=== PATIENT | female | born 1950 | race Hispanic/Latino ===

== ENCOUNTER 2021-04-10 11:29 | Emergency (ER) | payer OTHER ==
--- OUTSIDE RECORDS SUMMARY | 2021-04-10 11:31 | XMS REPORT | Continuity of Care Document ---
:1950 Author Organization [facility] t Address [address] [place] [address] Dr. Da Silva [address] [place] [id number] Care Team Providers Name Role Phone Miller_S_AH Attending Clinician Unavailable Christiano-Mbayo_A_AH Attending Clinician Unavailable Miller_S_AH Admitting Clinician Unavailable Christiano-Mbayo_A_AH Admitting Clinician Unavailable Payers Payer Name Policy Type Policy Number Effective Date Expiration Date S cesar [facility] - [id number] 2019 [employer] 00:00:00 (MEDICARE REPLACEMENT/ADVANT AGE - HMO) Problems This patient has no known problems. Allergies, Adverse Reactions, Alerts This patient has no known allergies or adverse reactions. Medications This patient has no known medications. Procedures This patient has no known procedures. Encounters Start End Encounter Admission Attending Care Care Encounter Source Date/Time Date/Time Type Type Clinicians Facility Department ID 2021-03-26 Outpatient Miller_S_AH VFP VFP [id number] - [facility] 23:15:21 [id number] Family Practic e 2021-03-25 Outpatient Christiano-Mbayo VFP VFP [id number] [facility] 01:54:29 _A_AH [id number] Family Practic e 2021-03-24 Outpatient Christiano-Mbayo VFP VFP [id number] [facility] 20:55:24 _A_AH [id number] Family Practic e 2021-03-24 Outpatient Christiano-Mbayo VFP VFP [id number] [facility] 15:04:54 _A_AH [id number] Family Practic e Results This patient has no known results.
--- NOTE | 2021-04-10 12:59 | RAD REPORT ---
EXAM DESCRIPTION: RAD - Foot Left 3 View - 04/10/2021 12:29 pm CLINICAL HISTORY: injury to L first toe;Pain Pain and swelling, first toe COMPARISON: Foot Left 3 View dated 08/30/2016 FINDINGS: Significant soft tissue injury is seen affecting the great toe. Bone detail is limited due to extensive bandaging. Suspected fracture of the distal phalanx of the great toe is evident.
[2021-04-10] MEDS ORDERED: LIDOCAINE 1% 20 ML MDV ONE (13:02)
[2021-04-10] MEDS ORDERED: IBUPROFEN 200 MG TAB PO ONE (13:02)
[2021-04-10] MEDS ORDERED: BUPIVACAINE 0.5% PF 10 ML VIAL ONE (13:02)
--- NOTE | 2021-04-10 13:57 | EDPHYS ---
Physician Documentation [facility] Name: Aiyana Ham Age: 70 yrs Sex: Female : 1950 Arrival Date: 04/10/2021 Time: 11:33 Bed 10 Private MD: ED Physician Mazin Pedraza HPI: 04/10 13:16 This 70 yrs old Female presents to ER via Wheelchair with complaints of Foot pm1 Injury. 13:16 The patient presents with a crush injury, Resulted from automatic sliding door closing pm1 on left great toe, pain, that is acute. The complaints affect the left first toe. Context: the patient is able to ambulate, Problem is a result from a previous injury: No. Onset: The symptoms/episode began/occurred today. Modifying factors: The symptoms are alleviated by nothing. Associated signs and symptoms: Pertinent negatives numbness, tingling. Treatment prior to arrival includes: applying pressure to the affected area. Severity of symptoms: in the emergency department the symptoms are unchanged. The patient has not experienced similar symptoms in the past. The patient has not recently seen a physician. Historical: - Allergies: 11:49 Codeine; ss - PMHx: 11:49 Anxiety; Hypertension; ss - Immunization history:: Client reports receiving the 2nd dose of the Covid vaccine. - Social history:: Smoking status: Patient denies any tobacco usage or history of. ROS: 11:49 Constitutional: Negative for fever, chills, and weight loss, Cardiovascular: Negative pm1 for chest pain, palpitations, and edema, Respiratory: Negative for shortness of breath, cough, wheezing, and pleuritic chest pain. 11:49 Neuro: Negative for headache, weakness, numbness, tingling, and seizure. 11:49 MS/extremity: Positive for laceration, pain, of the left first toe and Left first toenail, Negative for deformity. 11:49 Skin: Positive for laceration(s), of the Left first toenail and plantar aspect of left first toe. 11:49 All other systems are negative. Exam: 11:49 Constitutional: This is a well developed, well nourished patient who is awake, alert, pm1 and in no acute distress. Head/Face: Normocephalic, atraumatic. 11:49 Eyes: Exam is negative for acute changes, Periorbital structures: appear normal, Extraocular movements: no acute changes, Conjunctiva: no acute changes, no injection, Corneas: no acute changes. 11:49 ENT: Exam is negative for acute changes, TM's: no acute changes, Mouth: Lips: normal, moist, Oral mucosa: normal, pink and intact, moist. 11:49 Cardiovascular: Exam negative for acute changes, Rate: normal, Rhythm: regular, Pulses: no pulse deficits are appreciated. 11:49 Respiratory: Exam negative for acute changes, respiratory distress, shortness of breath. 11:49 Abdomen/GI: Exam negative for acute changes, Inspection: abdomen appears normal, Palpation: abdomen is soft and non-tender, in all quadrants. 11:49 Musculoskeletal/extremity: Extremities: grossly normal except: noted in the Partial avulsion of left great toe nail and laceration to distal palmar aspect of left great toe nail: 11:49 Skin: Appearance: normal except for affected area, injury, laceration(s), that can be described as As noted on ms exam. 11:49 Neuro: Exam negative for acute changes, Orientation: is normal, Mentation: is normal, Motor: is normal, moves all fours. Vital Signs: 11:47 BP 182 / 84; Pulse 66; Resp 17; Temp 97.9(TE); Pulse Ox 100% on R/A; Weight 79.38 kg; ss Height 5 ft. 3 in. (160.02 cm); Pain 10/10; 12:58 BP 169 / 86; Pulse 69; Resp 18; Pulse Ox 100% ; Pain 9/10; ld1 13:15 BP 162 / 79; Pulse 72; Resp 18; Pulse Ox 100% ; ld1 14:27 BP 155 / 80; Pulse 72; Resp 18; Pulse Ox 100% on R/A; ld1 11:47 Body Mass Index 31.00 (79.38 kg, 160.02 cm) ss Laceration: 13:52 Wound Repair of 2cm ( 0.8in ) subcutaneous laceration to left first toe. Irregularly pm1 shaped.. Distal neuro/vascular/tendon intact. Anesthesia: Digital block administered with 3 mls of Lido/Marcaine. Wound prep: Extensive cleansing with betadine by me, Wound irrigation with saline by me, Wound explored extensively, Copious irrigation. Skin closed with 4 4-0 Prolene using 3 simple sutures and 1 figure 8 with sterile technique. Dressed with Neosporin, 4x4's. Patient tolerated well. MDM: 12:18 Patient medically screened. pm1 13:52 Data reviewed: vital signs. Data interpreted: Pulse oximetry: on room air is 100 %. pm1 Interpretation: normal. 13:54 Counseling: I had a detailed discussion with the patient and/or guardian regarding: the pm1 historical points, exam findings, and any diagnostic results supporting the discharge/admit diagnosis, radiology results, the need for outpatient follow up, a sanding machine buffer, to return to the emergency department if symptoms worsen or persist or if there are any questions or concerns that arise at home. 04/10 11:50 Order name: XRAY Foot LEFT 3 View; Complete Time: 13:05 ss 04/10 13:16 Order name: Dressing - Wound; Complete Time: 13:27 pm1 04/10 13:16 Order name: Gloves, Sterile; Complete Time: 13:27 pm1 04/10 13:16 Order name: Prolene, Sutures; Complete Time: 13:27 pm1 04/10 13:16 Order name: Setup Suture Tray; Complete Time: 13:27 pm1 04/10 13:58 Order name: Post-op Orthopedic Shoe; Complete Time: 14:26 pm1 Administered Medications: 13:27 Drug: Bupivacaine (0.5 %) 10 ml {Note: Administered by Nas Brown OPHTHALMIC TECHNICIAN APPRENTICE.} Volume: 10 ld1 ml; Route: Infiltration; 13:27 Drug: Lidocaine (1 %) 5 ml {Note: Administered by Nas Brown OPHTHALMIC TECHNICIAN APPRENTICE.} Volume: 5 ml; ld1 Route: Infiltration; 14:26 Drug: Tetanus-Diphtheria Toxoid Adult 0.5 ml {Gas Meter Repair Supervisor: [employer]. Exp: ld1 09/23/2022. Lot #: [id number]. } Route: IM; Site: left deltoid; Disposition: 04/11 08:52 Co-signature as Attending Physician, Mazin Pedraza MD I agree with the assessment and zayda plan of care. Disposition Summary: 04/10/21 13:57 Discharge Ordered Location: Home pm1 Problem: new pm1 Symptoms: have improved pm1 Condition: Stable pm1 Diagnosis - Nondisplaced fracture of distal phalanx of left great toe - distal tuft fracture pm1 - Laceration without foreign body of left great toe with damage to nail, initial pm1 encounter Followup: pm1 - With: Emergency Department - When: As needed - Reason: Worsening of condition Followup: pm1 - With: Robert Mccormick DPM - When: 2 - 3 days - Reason: Recheck today's complaints, Continuance of care, Re-evaluation by your physician Discharge Instructions: - Discharge Summary Sheet pm1 - Laceration Care, Adult pm1 - Toe Fracture pm1 Forms: - Medication Reconciliation Form pm1 - Thank You Letter pm1 - Antibiotic Education pm1 - Prescription Opioid Use pm1 Prescriptions: - Cephalexin 500 mg Oral Capsule - take 1 capsule by ORAL route every 6 hours for 10 days; 40 capsule; Refills: 0, pm1 Product Selection Permitted - Diclofenac Sodium 75 mg Oral tablet,delayed release (DR/EC) - take 1 tablet by ORAL route 2 times per day As needed; 20 tablet; Refills: 0, pm1 Product Selection Permitted Signatures: Dispatcher [employer] EDMazin Frederick MD MD cha Smirch, Shelby, RN RN Nas Larson, DARA OPHTHALMIC TECHNICIAN APPRENTICE pm1 Kathia Ferreira RN RN ld1
--- NOTE | 2021-04-10 13:57 | ER ---
Nurse's Notes [facility] Name: Aiyana Ham Age: 70 yrs Sex: Female : 1950 Arrival Date: 04/10/2021 Time: 11:33 Bed 10 Private MD: Diagnosis: Nondisplaced fracture of distal phalanx of left great toe-distal tuft fracture;Laceration without foreign body of left great toe with damage to nail, initial encounter Presentation: 04/10 11:47 Chief complaint: Patient states: Automatic door closed onto R 1st toe 1.5 hours ago. ss Blood soaked dressing noted to toe. Coronavirus screen: Client denies travel out of the [place] in the last 14 days. Ebola Screen: Patient denies exposure to infectious person. Patient denies travel to an Ebola-affected area in the 21 days before illness onset. Initial Sepsis Screen: Does the patient meet any 2 criteria? No. Patient's initial sepsis screen is negative. Does the patient have a suspected source of infection? No. Patient's initial sepsis screen is negative. Risk Assessment: Do you want to hurt yourself or someone else? Patient reports no desire to harm self or others. Onset of symptoms was April 10, 2021. 11:47 Method Of Arrival: Wheelchair ss 11:47 Acuity: [place] 4 ss Historical: - Allergies: 11:49 Codeine; ss - PMHx: 11:49 Anxiety; Hypertension; ss - Immunization history:: Client reports receiving the 2nd dose of the Covid vaccine. - Social history:: Smoking status: Patient denies any tobacco usage or history of. Screenin:58 Abuse screen: Denies threats or abuse. Denies injuries from another. Nutritional ld1 screening: No deficits noted. Tuberculosis screening: No symptoms or risk factors identified. Fall Risk None identified. Assessment: 12:58 General: Appears in no apparent distress. uncomfortable, Behavior is calm, cooperative, ld1 appropriate for age. Pain: Complains of pain in plantar aspect of left first toe, left first toe and Left first toenail Pain does not radiate. Pain currently is 9 out of 10 on a pain scale. Quality of pain is described as throbbing, Pain began suddenly, Is continuous. Neuro: Level of Consciousness is awake, alert, obeys commands, Oriented to person, place, time, situation. Cardiovascular: Capillary refill < 3 seconds Patient's skin is warm and dry. Respiratory: Airway is patent Respiratory effort is even, unlabored, Respiratory pattern is regular, symmetrical. GI: Abdomen is flat, non-distended. : No signs and/or symptoms were reported regarding the genitourinary system. EENT: No signs and/or symptoms were reported regarding the EENT system. Derm: Pt closed automatic doors on her left great toe. Musculoskeletal: No signs and/or symptoms reported regarding the musculoskeletal system. 14:27 Reassessment: Patient appears in no apparent distress at this time. No changes from ld1 previously documented assessment. Patient and/or family updated on plan of care and expected duration. Pain level reassessed. Patient is alert, oriented x 3, equal unlabored respirations, skin warm/dry/pink. Vital Signs: 11:47 BP 182 / 84; Pulse 66; Resp 17; Temp 97.9(TE); Pulse Ox 100% on R/A; Weight 79.38 kg; ss Height 5 ft. 3 in. (160.02 cm); Pain 10/10; 12:58 BP 169 / 86; Pulse 69; Resp 18; Pulse Ox 100% ; Pain 9/10; ld1 13:15 BP 162 / 79; Pulse 72; Resp 18; Pulse Ox 100% ; ld1 14:27 BP 155 / 80; Pulse 72; Resp 18; Pulse Ox 100% on R/A; ld1 11:47 Body Mass Index 31.00 (79.38 kg, 160.02 cm) ED Course: 11:33 Patient arrived in ED. kc5 11:49 Triage completed. ss 11:49 Arm band placed on right wrist. ss 12:18 Nas Brown NP is PHCP. pm1 12:18 Mazin Pedraza MD is Attending Physician. pm1 12:29 XRAY Foot LEFT 3 View In Process Unspecified. EDMS 12:56 Kathia Ferreira, JORGE is Primary Nurse. ld1 12:58 Patient has correct armband on for positive identification. Placed in gown. Bed in low ld1 position. Call light in reach. Side rails up X2. monitoring manager on. Pulse ox on. NIBP on. Door closed. Noise minimized. Warm blanket given. 12:58 Assist provider with laceration repair. ld1 13:55 Robert Mccormick DPM is Referral Physician. pm1 14:28 Patient did not have IV access during this emergency room visit. ld1 Administered Medications: 13:27 Drug: Bupivacaine (0.5 %) 10 ml {Note: Administered by Nas Brown NP.} Volume: 10 ld1 ml; Route: Infiltration; 13:27 Drug: Lidocaine (1 %) 5 ml {Note: Administered by Nas Brown NP.} Volume: 5 ml; ld1 Route: Infiltration; 14:26 Drug: Tetanus-Diphtheria Toxoid Adult 0.5 ml {Pediatric Speech Language Pathologist: [employer]. Exp: ld1 09/23/2022. Lot #: [id number]. } Route: IM; Site: left deltoid; Outcome: 13:57 Discharge ordered by MD. pm1 14:28 Discharged to home via wheelchair. ld1 14:28 Condition: stable 14:28 Discharge instructions given to patient, Instructed on discharge instructions, follow up and referral plans. medication usage, Demonstrated understanding of instructions, follow-up care, medications, Prescriptions given X 2. 14:28 Patient left the ED. ld1 Signatures: Dispatcher [employer] EDMS Stella Sutton RN RN ss Marinas, Patrick, NP CATCHER PLUG pm1 Kathia Ferreira RN RN ld1 Rita Pike kc5
[2021-04-10] MEDS ORDERED: TETANUS & DIPHTHERIA TOX,ADULT 0.5 ML VIAL ONE (14:05)
[2021-04-10 14:33] VITALS: TEMP 97.9; O2SAT 100
[2021-04-10 14:36] VITALS: BP 155/80
== END 2021-04-10 14:28 | disposition home or self-care (01) ==
LOC: ER 11:29
PROC: 0JQR0ZZ Repair Left Foot Subcutaneous Tissue and Fascia, Open Approach (ICD-10-PCS; principal; 2021-04-10)
DX: S92.425A Nondisplaced fracture of distal phalanx of left great toe, initial encounter for closed fracture (principal); S91.212A Laceration without foreign body of left great toe with damage to nail, initial encounter; W23.0XXA Caught, crushed, jammed, or pinched between moving objects, initial encounter; Y93.89 Activity, other specified; Y92.9 Unspecified place or not applicable; Z23 Encounter for immunization
CPT/HCPCS: 90471; 90714; 99284

== ENCOUNTER 2021-10-27 09:56 | Day surgery (SDC) | payer OTHER ==
[2021-10-27 09:46] LABS: Absolute Lymphocytes (CBC) 0.5 K/uL (0.7-4.9); Hematocrit 39.2 % (36.0-45.0); Lymphocytes % 7.8 % (15.3-44.8); MPV 7.7 fL (7.6-11.3); RBC Red Blood Cell Count 4.48 M/uL (3.86-4.86)
--- NOTE | 2021-10-27 10:10 | RAD REPORT ---
EXAM DESCRIPTION: RAD - Chest Pa And Lat (2 Views) - 10/27/2021 9:42 am CLINICAL HISTORY: preop, pending cholecystectomy COMPARISON: None TECHNIQUE: Frontal and lateral views of the chest were obtained. FINDINGS: The lungs are clear. Increased anterior base opacification is believed to be combination of chronic interstitial disease and prominent pericardial fat pads. Left costophrenic angle blunting is believed to be the affects of pericardial fat pad and pleural scarring. Joint effusion is not susp ected. Heart size is normal and central vasculature is within normal limits. No pneumothorax. No acu te bony finding noted. No aortic abnormality. IMPRESSION: No acute cardiopulmonary process.
[2021-10-27 10:19] LABS: Albumin 3.7 g/dL (3.4-5.0); Bilirubin Direct 0.1 mg/dL (0-0.2); Bilirubin Total 0.5 mg/dL (0.2-1.0); Potassium 4.8 mmol/L (3.5-5.1)
[2021-10-27] MEDS ORDERED: NA CHLORIDE 0.9% 1,000 ML ONE (10:27)
[2021-10-27] MEDS ORDERED: propofoL 200 MG/20 ML VIAL IV ONE (12:12)
[2021-10-27] MEDS ORDERED: FENTANYL CITR 100 MCG/2 ML ONE (12:12)
[2021-10-27] MEDS ORDERED: LIDOCAINE 1% MPF 5 ML VIAL ONE (12:13)
[2021-10-27] MEDS ORDERED: ONDANSETRON 4 MG/2 ML VIAL ONE (12:13)
[2021-10-27] MEDS ORDERED: ROCURONIUM 50 MG/5 ML VIAL IV ONE (12:13)
[2021-10-27] MEDS: CEFOXITIN SODIUM 1 GM/VIAL ONE ×2 (12:38→13:01)
[2021-10-27] MEDS ORDERED: GLYCOPYRROLATE 0.2 MG/ML SYR ONE (13:48)
[2021-10-27] MEDS ORDERED: NEOSTIGMINE 1 MG/ML -10 ML VIAL ONE (13:57)
[2021-10-27] MEDS ORDERED: Mastisol Adhesive Liq ONE (13:59)
--- NOTE | 2021-10-27 14:06 | P.BOP ---
Preoperative diagnosis: acute cholecystitis, sympt. cholellithiasis, Choledocholithiasis s/pERCPste Postoperative diagnosis: same Primary procedure: Laparoscopic cholecystectomy Mat Cleaning Machine Operator: dAriane Cesar (TIME CLOCK INSPECTOR) Estimated blood loss: <10cc Specimen: gb Findings: as above Anesthesia: General Complications: None Transferred to: Recovery Room Condition: Good
[2021-10-27] MEDS: HYDROMORPHONE HCL 1 MG/ML INJ ONE ×3 (14:25→14:35)
[2021-10-27 15:02] VITALS: TEMP 97
[2021-10-27] MEDS ORDERED: TRAMADOL 37.5mg/APAP 325mg PER TAB ONE (15:29)
[2021-10-27 16:19] VITALS: BP 149/57; O2SAT 96
--- NOTE | 2021-10-30 12:00 | EKG ---
Test Date: 2021-10-27 Test Time: 09:46:49 Tieing Machine Operator: EDMUND MEASUREMENT RESULTS: Intervals: Rate: 61 [place]: 128 QRSD: 110 QT: 458 QTc: 461 [place]: P: -3 [place]: 128 QRS: -20 T: 7 INTERPRETIVE STATEMENTS: Normal sinus rhythm Low voltage QRS Incomplete right bundle branch block Borderline ECG Compared to ECG 07/14/2015 19:50:32 Low QRS voltage now present Incomplete right bundle-branch block now present Right bundle-branch block no longer present Electronically Signed On 10-30-21 11:52:34 CDT by Brant Soto
== END 2021-10-27 16:15 | disposition home or self-care (01) ==
LOC: OR 09:56
PROVIDERS: ATTEND Surgery
PROC: 0FT44ZZ Resection of Gallbladder, Percutaneous Endoscopic Approach (ICD-10-PCS; principal; 2021-10-27 12:00)
DX: K80.10 Calculus of gallbladder with chronic cholecystitis without obstruction (principal); K80.40 Calculus of bile duct with cholecystitis, unspecified, without obstruction; Z20.822 Contact with and (suspected) exposure to COVID-19
CPT/HCPCS: 93005; 85025; 80048; 36415; 82150; 82947; 80076; 88304; 83690; 71046; 47562; U0003; J2704; J2710; J3010; J1170; J7030; J0694; J2405

== ENCOUNTER 2025-02-05 05:24 | Inpatient (IN) | payer OTHER ==
--- OUTSIDE RECORDS SUMMARY | 2025-02-05 05:27 | XMS REPORT | Continuity of Care Document ---
Author Name Unknown Address [address] [facility] [address] [place] [address] [facility] Address [address] [facility] [address] [place] [address] Care Team Providers Care Venue Attendant Name Role Phone Narcisa Martinez Primary Care Physician [phone] Sayda Castro Attending Clinician Unavailable Doctor Unassigned, [place] Attending Clinician U Onel Diallo MD Attending Clinician [phone] ONEL DON Attending Clinician Unavailable Miller_S_AH Attending Clinician Unavailable Christiano-Mbayo_A_AH Attending Clinician Unavailable Miller_S_AH Admitting Clinician Unavailable Christiano-Mbayo_A_AH Admitting Clinician Unavailable Payers Payer Name Policy Type Policy Number Effective Date Expirati on Date Source [facility] [id number] 2018 00:[facility]00 [facility]PLAC[facility]/ADV ANTAGE - HMO) [id number] 2019 00:00:00 Problems Condition Name Condition Details Condition Category Status Onset Date Resolution Date Last Treatment Date Treating Clinician Comments Source Dietary management surveillan ce Dietary counseling and surveillan ce Problem [facility] [id number] Anal pain Problem [facility] Pain in limb Pain, foot Problem [facility] [id number] Chronic allergic rhinitis Problem [facility] [id number] Obesity (BMI 30.0-34.9) Problem [facility] [id number] Skin lesion Problem [facility] Mixed anxiety and depressive disorder Depression with anxiety Problem [facility] Multiple joint pain Multiple joint pain Problem [facility] Overactive bladder Overactive bladder Problem [facility] Hypertensi on Hypertensi on, unspecifie d type Problem [facility] Hyperlipid aemia Hyperlipid emia, unspecifie d hyperlipid emia type Problem [facility] Type II diabetes mellitus well controlled Diabetes type 2, controlled Problem [facility] [id number] Chronic kidney disease, unspecifie d CKD stage Problem [facility] [id number] 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, without long-term current use of insulin Problem Common [facility] [id number] Vaginal odor Problem [facility] Heart disease Heart problem Problem [facility] [id number] Abnormal CBC Problem [facility] [id number] Rash and nonspecifi c skin eruption Problem [facility] [id number] Insomnia, unspecifie d type Problem [facility] [id number] Elevated alkaline phosphatas e level Problem [facility] 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 ion Problem [facility] 27721092 Lower abdominal pain Problem [facility] Anxiety Anxiety Problem [facility] [id number] Urinary frequency Problem [facility] 60241364 Flexural eczema Problem [facility] 39826235 Mixed incontinen ce urge and stress Problem [facility] 24373338 Female genital prolapse, unspecifie d Problem [facility] 469868430 Gallstones Problem Com mon [facility] [id number] Elevated serum creatinine Problem [facility] 79834919 PUD (peptic ulcer disease) Problem [facility] 1471803 Primary insomnia Problem [facility] 66053907 Dysuria Problem [facility] Chronic kidney disease stage 3A (disorder) Chronic kidney disease, stage 3a Problem [facility] [id number] Stage 3b chronic kidney disease (CKD) Problem [facility] Overweight Overweight Problem [facility] Abnormal feces Fecal occult blood test positive Problem [facility] Allergies, Adverse Reactions, Alerts Allergy Name Allergy Type Status Severity Reaction(s) Onset Date Inactive Date Treating Clinician Comments Source CODEINE DRUG INGREDI Active Other-Cmnt 06-25 00:00: 00 [facility] NO KNOWN ALLERGIE S Drug Class Active [facility] Codeine Codeine Active nausea and vomiting; and stomach pain [facility] Social History Social Habit Start Date Stop Date Quantity Comments Source History of Tobacco Use [facility] Sex Assigned At [facility] Exposure to SARS-CoV-2 (event) 2022-06-15 00:00:00 2022-06-25 12:36:00 Not sure [facility] Cigarettes smoked current (pack per day) - Reported 2022-06-25 00:00:00 2022-06-25 00:00:00 [facility] Cigarette pack-years 2022-06-25 00:00:00 2022-06-25 00:00:00 [facility] Tobacco use and exposure 2022-06-25 00:00:00 2022-06-25 00:00:00 Smokeless tobacco non-user [facility] Smoking Status Start Date Stop Date Source Tobacco smoking consumption unknown [facility] Former Smoker 2024-06-05 00:00:00 2024-06-05 00:00:00 [facility] Medications Ordered Medication Name Filled Medication Name Start Date Stop Date Current Medication? Ordering Clinician Indication Dosage Frequency Signature (SIG) Comments Components Source Clobetasol Propionate 0.05 % Clobetasol Propionate 0.05 % 12-01 00:00: 00 No 1{appli cation} BID Clobetasol Propionate 0.05 % tc 99m-tetrofo smin (MYOVIEW) injection 43.1 millicurie 07-26 15:00: 00 07-26 14:51 :00 No [id number] 43.1mCi 43.1 millicurie , Intravenou s, ONCE, 1 dose, On [place] 07/26/22 at 1000, Routine [facility] regadenoson (LEXISCAN) injection 0.4 mg 07-26 14:45: 00 07-26 16:34 :00 No [id number] .4mg 0.4 mg, IV Push, ONCE, 1 dose, On [place] 07/26/22 at 0945, Routine
member of the legislative council approving Restricted medication : ONEL DON [facility] tc 99m-tetrofo smin (MYOVIEW) injection 16 millicurie 07-26 13:30: 00 07-26 13:22 :00 No [id number] 16mCi 16 millicurie , Intravenou s, ONCE, 1 dose, On [place] 07/26/22 at 0830, Routine [facility] glipiZIDE 5 mg tablet 06-25 12:53: 38 Yes 5mg Take 5 mg by mouth in the morning. [facility] losartan 100 mg tablet 06-25 12:53: 38 Yes 100mg Take 100 mg by mouth in the morning. [facility] traZODone 100 mg tablet 06-25 12:53: 38 Yes 100mg Take 100 mg by mouth at bedtime. [facility] hydrALAZINE 50 mg tablet 06-25 12:53: 38 Yes 50mg Take 50 mg by mouth in the morning and 50 mg in the evening. [facility] pantoprazol e 40 mg EC tablet 06-25 12:53: 38 Yes 40mg Take 40 mg by mouth in the morning. [facility] OneTouch Delica Lancets 30G - OneTouch Delica Lancets 30G - No OneTouch Delica Lancets 30G - Carvedilol 25 MG Carvedilol 25 MG No Carvedilol 25 MG OneTouch Ultra - OneTouch Ultra - No OneTouch Ultra - hydrALAZINE HCl 50 MG hydrALAZINE HCl 50 MG No 1{table t} hydrALAZIN E HCl 50 MG traZODone HCl 100 MG traZODone HCl 100 MG No 1{table t_at_be dtime} QD traZODone HCl 100 MG Atorvastati n Calcium 20 MG Atorvastati n Calcium 20 MG No QD Atorvastat in Calcium 20 MG Coreg 25 MG Coreg 25 MG No 1{table t} Coreg 25 MG Pantoprazol e Sodium 40 MG Pantoprazol e Sodium 40 MG No 1{table t} QD Pantoprazo le Sodium 40 MG Losartan Potassium 100 mg Losartan Potassium 100 mg No 1{table t} QD Losartan Potassium 100 mg Sucralfate 1 GM Sucralfate 1 GM No Sucralfate 1 GM Immunizations Ordered Immunization Name Filled Immunization Name Date Status Comments Source Moderna COVID-19 Vaccine, Fall 2022, years and up Moderna COVID-19 Vaccine, Fall 2022, years and up Unknown Completed [facility] Boostrix (Tdap) Boostrix (Tdap) Unknown Completed [facility] Influenza Influenza Unknown Completed [facility] Vital Signs Vital Name Observation Time Observation Value Comments S ource height 2024-06-09 10:40:00 63.25 [in_i] Com mon [facility] weight 2024-06-09 10:40:00 165.8 [lb_av] Co mmon [facility] temperature 2024-06-09 10:40:00 98 [degF] Comm on [facility] bmi 2024-06-09 10:40:00 29.14 kg/m2 Comm on [facility] oximetry 2024-06-09 10:40:00 94 % Commo n [facility] respiratory rate 2024-06-09 10:40:00 16 /min [facility] blood pressure systolic 2024-06-09 10:40:00 136 mm[Hg] [facility] blood pressure diastolic 2024-06-09 10:40:00 88 mm[Hg] [facility] height 2024-03-02 13:40:00 63.25 [in_i] Com [facility] weight 2024-03-02 13:40:00 166 [lb_av] Comm on [facility] temperature 2024-03-02 13:40:00 97.4 [degF] Com [facility] bmi 2024-03-02 13:40:00 29.17 kg/m2 Comm on [facility] oximetry 2024-03-02 13:40:00 96 % Commo n [facility] respiratory rate 2024-03-02 13:40:00 16 /min [facility] blood pressure systolic 2024-03-02 13:40:00 132 mm[Hg] [facility] blood pressure diastolic 2024-03-02 13:40:00 66 mm[Hg] [facility] height 2023-11-29 13:40:00 63.25 [in_i] Com [facility] weight 2023-11-29 13:40:00 168 [lb_av] Comm on [facility] temperature 2023-11-29 13:40:00 97.4 [degF] Com [facility] bmi 2023-11-29 13:40:00 29.52 kg/m2 Comm on [facility] oximetry 2023-11-29 13:40:00 96 % Commo n [facility] respiratory rate 2023-11-29 13:40:00 16 /min [facility] blood pressure systolic 2023-11-29 13:40:00 130 mm[Hg] [facility] blood pressure diastolic 2023-11-29 13:40:00 62 mm[Hg] [facility] height 2023-08-28 13:40:00 63.25 [in_i] Com [facility] weight 2023-08-28 13:40:00 170 [lb_av] Comm on [facility] temperature 2023-08-28 13:40:00 97.3 [degF] Com [facility] bmi 2023-08-28 13:40:00 29.87 kg/m2 Comm on [facility] oximetry 2023-08-28 13:40:00 97 % Commo n [facility] respiratory rate 2023-08-28 13:40:00 16 /min [facility] blood pressure systolic 2023-08-28 13:40:00 118 mm[Hg] [facility] blood pressure diastolic 2023-08-28 13:40:00 58 mm[Hg] Common [facility] height 2023-08-28 13:40:00 63.25 [in_i] Com [facility] weight 2023-08-28 13:40:00 170.0 [facility]lb_av[facility] 2023-08-28 13:40:00 97.3 [degF] Com [facility] bmi 2023-08-28 13:40:00 29.87 kg/m2 Comm on [facility] oximetry 2023-08-28 13:40:00 97 % Commo n [facility] respiratory rate 2023-08-28 13:40:00 16 /min [facility] blood pressure systolic 2023-08-28 13:40:00 118 mm[Hg] [facility] blood pressure diastolic 2023-08-28 13:40:00 58 mm[Hg] [facility] Systolic blood pressure 2022-06-25 18:56:00 132 mm[Hg] [place] [facility] Diastolic blood pressure 2022-06-25 18:56:00 68 mm[Hg] [facility] Heart rate 2022-06-25 18:56:00 63 /min [facility] Body temperature 2022-06-25 18:56:00 36.72 Emily [facility] Respiratory rate 2022-06-25 18:56:00 18 /min [facility] Body height 2022-06-25 18:56:00 160 cm [facility] Body weight 2022-06-25 18:56:00 75.524 kg [facility] BMI 2022-06-25 18:56:00 29.49 kg/m2 [facility] Oxygen saturation in Arterial blood by Pulse oximetry 2022-06-25 18:56:00 96 /min [facility] Procedures Procedure Date / Time Performed Performing Clinicia n Source MEDICAL RELEASE/CLEARANCE FORMS 2022-09-11 05:01:00 Doctor Unassigned, [place] [facility] MYOCARDIUM PERFUSION STRESS AND REST 2022-07-26 16:00[facility]00 [facility] 2022-07-26 16:00:00 Gaudencio [facility] MYOCARDIUM PERFUSION STRESS AND REST 2022-07-26 16:00:00 Gaudencio [facility] MYOCARDIUM PERFUSION STRESS AND REST 2022-07-26 16:00:00 Gaudencio [facility] ASSIGNMENT OF BENEFITS 2022-07-26 13:09:10 Docto r Unassigned, [place] [facility] CONSENT/REFUSAL FOR DIAGNOSIS AND TREATMENT 2022-07-26 13:08:44 Doctor Unassigned, A[place] [facility] HB ECG ROUTINE & RHYTHM STRIP 2022-06-25 [facility]:01[facility]AT[facility] 2022-06-25 18:34:05 Doctor Unassigned, [place] [facility] EXTERNAL PROVIDER - ADC REFERRAL 2022-05-22 06:01:00 Doctor Unassigned, [place] [facility] Encounters Start Date/Time End Date/Time Encounter Type Admission Type Attending Clinicians Care Facility Care Department Encounter ID Source 2023-11-27 15:17:00 Outpatient Sayda Castro [facility] STLMLC [id number] [facility] 2023-08-28 13:39:01 Outpatient Sayda Castro [facility] STLC [id number] [facility] 2024-06-17 00:00:00 2024-06-17 00:00:00 (TEL) STLMLC STLMLC [id number] [facility] 2024-06-09 00:00:00 2024-06-09 00:00:00 OFFICE VISIT ESTAB PT LEVEL 4 STLMLC STLMLC [id number] [facility] 2024-05-26 00:00:00 2024-05-26 00:00:00 (TEL) STLMLC STLMLC [id number] [facility] 2024-03-02 00:00:00 2024-03-02 00:00:00 OFFICE VISIT ESTAB PT LEVEL 4 STLMLC STLMLC [id number] [facility] 2024-02-13 00:00:00 2024-02-13 00:00:00 (TEL) STLMLC STLMLC [id number] [facility] 2023-11-29 00:00:00 2023-11-29 00:00:00 OFFICE VISIT ESTAB PT LEVEL 4 STLMLC STLMLC [id number] [facility] 2023-10-28 00:00:00 2023-10-28 00:00:00 (TEL) STLMLC STLMLC [id number] [facility] 2023-08-28 00:00:00 2023-08-28 00:00:00 [facility] STL[facility] [id number] [facility] 2023-08-28 00:00:00 2023-08-28 00:00:00 OFFICE VISIT ESTAB PT LEVEL 4 STLMLC STLMLC [id number] [facility] 2022-09-11 00:00:00 2022-09-11 00:00:00 Orders Only Doctor Unassigned, [place] [facility] [id number] 350.1.13.10 4.2.7.2.686 [id number] [facility] 2022-08-31 00:00:00 2022-08-31 00:00:00 [facility] [id number] 350.1.13.10 4.2.7.2.686 [id number] [facility] 2022-07-27 00:00:00 2022-07-27 00:00:00 Telephone Gaudencio [facility] [id number] 350.1.13.10 4.2.7.2.686 [id number] [facility] 2022-07-26 08:10:26 2022-07-26 23:59:00 Hospital Encounter [facility] [id number] 350.1.13.10 4.2.7.2.686 [id number] [facility] 2022-07-26 08:10:12 2022-07-26 23:59:00 Hospital Encounter Gaudencio, [facility] 1.2.840.114 350.1.13.10 4.2.7.2.686 [id number] [facility] 2022-07-26 08:10:00 2022-07-26 08:10:00 [facility] 1.2.840.114 350.1.13.10 4.2.7.2.686 [id number] [facility] 2022-07-26 08:09:36 2022-07-26 08:09:36 [facility] [id number] 350.1.13.10 4.2.7.2.686 [id number] [facility] 2022-07-26 08:09:36 2022-07-26 08:09:36 [facility] [id number] [facility] 2022-07-12 07:59:10 2022-07-12 23:59:[address] [facility] [id number] 350.1.13.10 4.2.7.2.686 [id number] [facility] 2022-07-12 00:00:00 2022-07-12 23:59:00 [facility] [id number] [facility] 2022-06-27 00:00:00 2022-06-27 00:00:00 Telephone Gaudencio [facility] 1.2.840.114 350.1.13.10 4.2.7.2.686 [id number] [facility] 2022-06-25 13:00:00 2022-06-25 14:33:34 Office Visit Gaudencio [facility] 1.2.840.114 350.1.13.10 4.2.7.2.686 [id number] [facility] 2022-06-25 13:00:00 2022-06-25 14:33:34 [facility] [id number] [facility] 2022-06-25 00:00:00 2022-06-25 00:00:00 Orders Only Doctor Unassigned, [place]yr [facility] [id number] 350.1.13.10 4.2.7.2.686 [id number] [facility] 2022-05-22 00:00:00 2022-05-22 00:00:00 Orders Only Doctor Unassigned, [place] [facility] 1.2.840.114 350.1.13.10 4.2.7.2.686 [id number] [facility]
[2025-02-05 05:46] LABS: Absolute Lymphocytes (CBC) 0.3 K/uL (0.7-4.9); Hematocrit 27.2 % (36.0-45.0); Hemoglobin 9.0 g/dL (12.0-15.0); MCH 27.8 pg (27.0-35.0); MCHC 33.0 g/dL (32.0-36.0); MCV 84.4 fL (80-100); MPV 7.5 fL (7.6-11.3); Nucleated RBC Absolute Count 0.0 (0-0); Nucleated Red Blood Cells % 0.0 % (0-0); RBC Red Blood Cell Count 3.23 M/uL (3.86-4.86); White Blood Count 4.70 thou/uL (4.3-10.9)
[2025-02-05 05:53] LABS: PT Prothrombin Time 12.7 SECONDS (10-13.0); Protime INR 1.13
[2025-02-05 06:05] LABS: ALT/SGPT 15 U/L (13-56); AST/SGOT 21 U/L (15-37); Albumin 2.7 g/dL (3.4-5.0); Albumin/Globulin Ratio 0.6 (1.1-1.8); Alkaline Phosphatase 95 U/L (45-117); Anion Gap 10.7 mEq/L (5.0-15.0); BUN Blood Urea Nitrogen 61 mg/dL (7-18); Globulin 4.6 g/dL (2.3-3.5); Glucose Level 125 mg/dL (74-106); NT PRO-BNP 6434 pg/mL (<450); Potassium 4.7 mEq/L (3.5-5.1); Troponin High Sensitivity 29.0 pg/mL (<58.9)
[2025-02-05 06:06] LABS: Bilirubin Indirect, Calculated 0.3 mg/dL (0.2-0.8)
[2025-02-05] MEDS ORDERED: METHYLPREDNISOLONE 125 MG INJ ONE (06:21)
--- NOTE | 2025-02-05 06:26 | ER ---
Nurse's Notes [facility] Name: Aiyana Ham Age: 74 yrs Sex: Female : 1950 Arrival Date: 02/05/2025 Time: 05:24 Bed 16 Private MD: Diagnosis: Dyspnea, microscopic polyangiitis, CHF Presentation: 02/05 05:26 Chief complaint: Patient states: SHORTNESS OF BREATH OFF AND ON FOR A MONTH. ha1 05:26 Method Of Arrival: EMS: [facility] 1 05:26 Coronavirus screen: Client denies travel out of the [place] in the last 14 days. Ebola ha1 Screen: No symptoms or risks identified at this time. Initial Sepsis Screen: Does the patient meet any 2 criteria? No. Patient's initial sepsis screen is negative. Does the patient have a suspected source of infection? No. Patient's initial sepsis screen is negative. Risk Assessment: Do you want to hurt yourself or someone else? Patient reports no desire to harm self or others. Onset of symptoms was February 05, 2025. 05:26 Acuity: [place] 2 ha1 Triage Assessment: 05:43 Respiratory: ha1 05:43 General: Appears uncomfortable, Behavior is cooperative. Pain: Denies pain. Neuro: ha1 Level of Consciousness is awake, alert, obeys commands, Oriented to person, place, time, situation. Cardiovascular: Capillary refill < 3 seconds Patient's skin is warm and dry. Respiratory: Reports shortness of breath at rest on exertion Airway is patent Respiratory effort is even, unlabored, Respiratory pattern is regular, symmetrical. Historical: - Allergies: 05:37 Codeine; ha1 - Home Meds: 05:37 Hydralazine Oral [Active]; losartan 50 mg Oral tab 1 tab 2 times per day [Active]; ha1 pantoprazole oral [Active]; sucralfate 1 gram Oral tablet [Active]; trazodone 100 mg Oral tablet [Active]; Coreg 25 mg Oral tablet [Active]; atorvastatin 20 mg oral tablet [Active]; - PMHx: 05:37 Anxiety; Hypertension; ha1 - Immunization history:: Adult Immunizations unknown. - Infectious Disease History:: Denies. - Social history:: Smoking status: Patient/guardian denies using tobacco, the patient reports quitting approximately 15 years ago. Screenin:42 [facility] ED Fall Risk Assessment (Adult) History of falling in the last 3 months, ha1 including since admission No falls in past 3 months (0 pts) Confusion or Disorientation No (0 pts) Intoxicated or Sedated No (0 pts) Impaired Gait Yes (1 pt) Mobility Assist Device Used Yes (1 pt) Altered Elimination No (0 pt) Score/Fall Risk Level 3 or more points = High Risk Oriented to surroundings, Maintained a safe environment, Educated pt \T\ family on fall prevention, incl call for assistance when getting out of bed, Hourly rounding (assess needs \T\ fall precautionary measures) done. Abuse screen: Denies threats or abuse. Denies injuries from another. Nutritional screening: No deficits noted. Tuberculosis screening: No symptoms or risk factors identified. Assessment: 05:36 General: Appears comfortable, Behavior is cooperative, anxious. Pain: Denies pain. kd3 Cardiovascular: Rhythm is regular. Respiratory: Reports shortness of breath at rest labored breathing Airway is patent Respiratory effort is labored. 05:49 Respiratory: Breath sounds are clear in right upper lobe Breath sounds with crackles in kd3 left upper lobe. Vital Signs: 05:33 Temp 98; kd3 05:36 BP 208 / 93; Pulse 75; Resp 18; Pulse Ox 100% ; kd3 05:42 Weight 72.57 kg; Height 5 ft. 2 in. ; ha1 05:46 BP 192 / 71; Pulse 75; Resp 26; Pulse Ox 100% on 4 lpm NC; kd3 06:17 BP 188 / 68; Pulse 74; Resp 19; Pulse Ox 100% on 4 lpm NC; kd3 06:40 BP 177 / 70; Pulse 78; Resp 23; Pulse Ox 100% on 4 lpm NC; kd3 07:32 BP 178 / 71; Pulse 74; Resp 17; Pulse Ox 100% on 4 lpm NC; hb 05:42 Body Mass Index 29.26 (72.57 kg, 157.48 cm) ha1 ED Course: 05:26 Patient arrived in ED. gm2 05:26 Patient has correct armband on for positive identification. Bed in low position. Call ha1 light in reach. Side rails up X2. 05:26 Client placed on continuous cardiac and pulse oximetry monitoring. NIBP monitoring ha1 applied. nuclear monitoring technician on. 05:29 Wanda Colunga MD is Attending Physician. sp3 05:32 Lizzy Thomas, RN is Primary Nurse. kd3 05:33 Initial lab(s) drawn, by me, sent to lab. EKG done, by ED staff, reviewed by Wanda Colunga MD. Inserted saline lock: 22 gauge in left forearm, using aseptic technique. Blood collected. Flushed with 10 mL NS. 05:37 Triage completed. ha1 06:09 XRAY Chest (1 view) In Process Unspecified. EDMS 06:26 Wm Durham MD is Hospitalizing Provider. sp3 06:40 Arm band placed on. kd3 Administered Medications: 06:25 Drug: MethylPrednisoLONE IVP 125 mg IVP once Route: IVP; Site: left forearm; kd3 Medication: 05:47 VIS not applicable for this client. kd3 Outcome: 06:26 Decision to Hospitalize by Provider. sp3 08:52 Patient left the ED. iw Signatures: Dispatcher [employer] EDMN Nadiya Hernandez RN RN Alexandria Kwan RN RN Wanda Colunga MD MD sp3 Lizzy Thomas, RN RN kd3 Yojana Carrion RN RN [facility] Claudine Hendrickson [facility]
--- NOTE | 2025-02-05 06:26 | EDPHYS ---
Physician Documentation [facility] Name: Aiyana Ham Age: 74 yrs Sex: Female : 1950 Arrival Date: 02/05/2025 Time: 05:24 Bed 16 Private MD: ED Physician Wanda Colunga HPI: 02/05 06:07 This 74 yrs old Female presents to ER via EMS with complaints of Breathing sp3 Difficulty. 06:07 74-year-old female presents to the ED referred by her PCP for microscopic polyangiitis sp3 (MPA). Patient also has been having some shortness of breath. She denies any headache, fever, neck pain, chest pain, abdominal pain, vomiting, diarrhea, or any other signs or symptoms on ROS at this time. Patient is not currently on steroids. PMH includes anxiety and hypertension. Her PCP is at [facility].. Historical: - Allergies: 05:37 Codeine; ha1 - Home Meds: 05:37 Hydralazine Oral [Active]; losartan 50 mg Oral tab 1 tab 2 times per day [Active]; ha1 pantoprazole oral [Active]; sucralfate 1 gram Oral tablet [Active]; trazodone 100 mg Oral tablet [Active]; Coreg 25 mg Oral tablet [Active]; atorvastatin 20 mg oral tablet [Active]; - PMHx: 05:37 Anxiety; Hypertension; ha1 - Immunization history:: Adult Immunizations unknown. - Infectious Disease History:: Denies. - Social history:: Smoking status: Patient/guardian denies using tobacco, the patient reports quitting approximately 15 years ago. ROS: 06:12 Constitutional: Negative for fever, chills, and weight loss, Eyes: Negative for injury, sp3 pain, redness, and discharge, ENT: Negative for injury, pain, and discharge, Neck: Negative for injury, pain, and swelling, Cardiovascular: Negative for chest pain, palpitations, and edema, Respiratory: Negative for shortness of breath, cough, wheezing, and pleuritic chest pain, Abdomen/GI: Negative for abdominal pain, nausea, vomiting, diarrhea, and constipation, Back: Negative for injury and pain, MS/Extremity: Negative for injury and deformity, Skin: Negative for injury, rash, and discoloration, Neuro: Negative for headache, weakness, numbness, tingling, and seizure, Psych: Negative for depression, anxiety, suicide ideation, homicidal ideation, and hallucinations, Allergy/Immunology: Negative for hives, rash, and allergies, Endocrine: Negative for neck swelling, polydipsia, polyuria, polyphagia, and marked weight changes, 06:12 All other systems are negative, Exam: 06:13 Constitutional: This is a well developed, well nourished patient who is awake, alert, sp3 and in no acute distress. Head/Face: Normocephalic, atraumatic. Eyes: Pupils equal round and reactive to light, extra-ocular motions intact. Lids and lashes normal. Conjunctiva and sclera are non-icteric and not injected. Cornea within normal limits. Periorbital areas with no swelling, redness, or edema. ENT: Nares patent. No nasal discharge, no septal abnormalities noted. External auditory canals are clear. Oropharynx with no redness, swelling, or masses, exudates, or evidence of obstruction, uvula midline. Mucous membranes moist. Neck: Trachea midline, no thyromegaly or masses palpated, and no cervical lymphadenopathy. Supple, full range of motion without nuchal rigidity, or vertebral point tenderness. No Meningismus. Chest/axilla: Normal chest wall appearance and motion. Nontender with no deformity. No lesions are appreciated. Cardiovascular: Regular rate and rhythm with a normal S1 and S2. No gallops, murmurs, or rubs. Normal PMI, no JVD. No pulse deficits. Respiratory: Lungs have equal breath sounds bilaterally, clear to auscultation and percussion. No rales, rhonchi or wheezes noted. No increased work of breathing, no retractions or nasal flaring. Abdomen/GI: Soft, non-tender, with normal bowel sounds. No distension or tympany. No guarding or rebound. No evidence of tenderness throughout. Back: No spinal tenderness. No costovertebral tenderness. Full range of motion. Skin: Warm, dry with normal turgor. Normal color with no rashes, no lesions, and no evidence of cellulitis. MS/ Extremity: Pulses equal, no cyanosis. Neurovascular intact. Full, normal range of motion. Neuro: Awake and alert, GCS 15, oriented to person, place, time, and situation. Cranial nerves II-XII grossly intact. Motor strength 5/5 in all extremities. Sensory grossly intact. Cerebellar exam normal. Normal gait. Psych: Awake, alert, with orientation to person, place and time. Behavior, mood, and affect are within normal limits. 06:13 Respiratory: Coarse breath sounds bilaterally. Respiratory rate between 20 and 24. No accessory muscle use or respiratory distress noted., 06:27 ECG was reviewed by the Attending Physician. EKG demonstrates normal sinus rhythm at 80 sp3 bpm with normal intervals, normal QRS, normal axis, nonspecific diffuse ST/T changes without evidence of acute ischemia. Vital Signs: 05:33 Temp 98; kd3 05:36 BP 208 / 93; Pulse 75; Resp 18; Pulse Ox 100% ; kd3 05:42 Weight 72.57 kg; Height 5 ft. 2 in. ; ha1 05:46 BP 192 / 71; Pulse 75; Resp 26; Pulse Ox 100% on 4 lpm NC; kd3 06:17 BP 188 / 68; Pulse 74; Resp 19; Pulse Ox 100% on 4 lpm NC; kd3 06:40 BP 177 / 70; Pulse 78; Resp 23; Pulse Ox 100% on 4 lpm NC; kd3 07:32 BP 178 / 71; Pulse 74; Resp 17; Pulse Ox 100% on 4 lpm NC; hb 05:42 Body Mass Index 29.26 (72.57 kg, 157.48 cm) ha1 MDM: 05:36 Medical Screening Exam initiated sp3 06:13 Data reviewed: vital signs, nurses notes, lab test result(s), EKG, radiologic studies. sp3 ED course: 74-year-old female with microscopic polyangiitis workup. Differential diagnosis includes MPA, ACS, CHF, pneumonia, bronchitis, electrolyte abnormality, among others. Full workup pending. Patient will likely need to be admitted. I have started steroids but will defer to internal medicine for cyclophosphamide.. 02/05 05:34 Order name: Basic Metabolic Panel; Complete Time: 06:15 ha1 02/05 05:34 Order name: CBC with Diff; Complete Time: 05:58 ha1 02/05 05:34 Order name: LFT's; Complete Time: 06:15 ha1 02/05 05:34 Order name: NT PRO-BNP; Complete Time: 06:15 ha1 02/05 05:34 Order name: PT-INR; Complete Time: 05:58 ha1 02/05 05:34 Order name: Troponin HS; Complete Time: 06:15 [facility] 02/05 07:23 Order name: C-Reactive Protein [facility] 02/05 07:23 Order name: Troponin High Sensitivity [facility] 02/05 05:34 Order name: XRAY Chest (1 view) [facility] 02/05 07:23 Order name: Echo with Doppler [facility] 02/05 07:23 Order name: CONS Physician Consult [facility] 02/05 07:23 Order name: CONS Physician Consult [facility] 02/05 05:34 Order name: Cardiac monitoring; Complete Time: 05:34 [facility] 02/05 05:34 Order name: EKG - Nurse/Tech; Complete Time: 05:34 [facility] 02/05 05:34 Order name: IV Saline Lock; Complete Time: 05:34 02/05 05:34 Order name: Labs collected and sent; Complete Time: 05:34 [facility] 02/05 05:34 Order name: O2 Per Protocol; Complete Time: 05:34 [facility] 02/05 05:34 Order name: O2 Sat Monitoring; Complete Time: 05:34 ha Administered Medications: 06:25 Drug: MethylPrednisoLONE IVP 125 mg IVP once Route: IVP; Site: left forearm; kd3 Disposition Summary: 02/05/25 06:26 Hospitalization Ordered Notes: Hospitalization Status: Inpatient Admission sp3 Provider: Wm Durham sp3 [facility] sp3 Condition: Stable sp3 Problem: new sp3 Symptoms: have worsened sp3 Bed/Room Type: Standard sp3 Room Assignment: [facility](02/05/25 07:29) eb Diagnosis - Dyspnea, microscopic polyangiitis, CHF sp3 Forms: - Medication Reconciliation Form sp3 - SBAR form sp3 - Leadership Thank You Letter sp3 Signatures: Dispatcher [employer] [facility] Yvette Marquez Wanda Colunga MD MD sp3 Lizzy Thomas RN RN 3 Yojana Carrion RN RN 1 Corrections: (The following items were deleted from the chart) 07: 06:26 sp3 eb
[2025-02-05] MEDS ORDERED: ONDANSETRON 4 MG/2 ML VIAL IV PRN (07:17)
[2025-02-05] MEDS ORDERED: ACETAMINOPHEN 650MG/RECT SUPP PR PRN (07:17)
--- NOTE | 2025-02-05 07:26 | P.HP ---
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 She has been sent by Dr. Still for abnormal blood work including positive ANCA screen with a high anti-MPO titer. She is short of breath and feeling very weak. 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 She has little social support. She denies fevers, chills. She does have some associated shortness of breath. She is seen resting comfortably and responds to my commands but falls back asleep. Allergies codeine Adverse Reaction (Verified 10/27/21 10:39) stomach pain Home Medications: Atorvastatin Calcium [Lipitor] 20 mg PO BEDTIME 10/27/21 Losartan Potassium [Cozaar] 100 mg PO DAILY 10/27/21 Pantoprazole Sodium 40 mg PO DAILY 10/27/21 Trazodone HCl 100 mg PO BEDTIME 10/27/21 carvediloL [Coreg] 25 mg PO BID 10/27/21 Ergocalciferol (Vitamin D2) [Vitamin D2] 1 cap PO SEECOM 02/05/25 Hydralazine HCl 1 tab PO BID 02/05/25 Sucralfate [Carafate] 1 tab PO BID 02/05/25 Torsemide [Demadex*] 1 tab PO DAILY 02/05/25 - Family History Father History Unknown: Yes Mother History Unknown: Yes Review of Systems is unable to be obtained Physical Examination - Physical Exam General: In no apparent distress, Mild distress HEENT: Normocephalic Neck: Supple Respiratory: Clear to auscultation bilaterally Capillary refill: <2 Seconds Gastrointestinal: Normal bowel sounds Musculoskeletal: Swelling Integumentary: No rashes Neurological: Normal speech Lymphatics: No axilla or inguinal lymphadenopathy - Studies Laboratory Data (last 24 hrs) 02/05/25 02/05/25 02/05/25 05:38 05:38 05:38 WBC 4.70 Hgb 9.0 L Hct 27.2 L Plt Count 205 PT 12.7 INR 1.13 Sodium 138 Potassium 4.7 BUN 61 H Creatinine 3.71 H Glucose 125 H Total Bilirubin 0.5 AST 21 ALT 15 Alkaline Phosphatase 95 Assessment and Plan - Plan CHF exacerbation Hypoxia ANCA Vasculitis Acute kidney injury on CKD Pulmonary edema Hypertensive urgency Anemia chronic kidney disease Admit to floor Defer to nephrology for Rituximab and cyclophosphamide. Will start medications on Saturday, discussed with nephrology Continue breathing treatments, Lasix, steroids Now on nifedipine and hydralazine as needed Consult nephrology and pulmonology CBC and CMP in the a.m. Check iron studies Monitor blood sugars closely as she is on high-dose steroid Add Lantus 10 units nightly and continue sliding scale insulin - Advance Directives Does patient have a Living Will: No Does patient have a Durable POA for Healthcare: No
--- NOTE | 2025-02-05 07:37 | RAD REPORT ---
EXAM DESCRIPTION: Chest Single View CLINICAL HISTORY: SOB COMPARISON: None TECHNIQUE: Single AP view of the chest. FINDINGS: Lung volumes adequate. Cardiac silhouette is enlarged. Aortic calcifications. No pneumothorax. No large pleural effusion. Bilateral interstitial thickening. No focal consolidation. No acute bony finding. IMPRESSION: 1. Bilateral interstitial thickening, could represent pulmonary edema. No focal consolidation. 2. Enlarged cardiac silhouette. Electronically signed by: Deann Yañez MD 02/05/2025 07:25 AM CDT TYG Due to temporary technical issues with the PACS/[employer] reporting system, reports are being javier d by the in-house radiologist without review as a courtesy to ensure prompt reporting the interpreting radiologist is fully responsible for the content of the report Transcribed Date/Time: 02/05/2025 7:37 AM
[2025-02-05] MEDS: METHYLPREDNISOLONE 40 MG INJ IV SCH (09:00)
[2025-02-05 09:38] LABS: C-Reactive Protein 10.5 mg/L (<3.00); Troponin High Sensitivity 30.1 pg/mL (<58.9)
[2025-02-05 09:40] LABS: HDL Cholesterol 53.0 mg/dL (40-60); Iron 35.0 ug/dL (50-170); LDL Cholesterol, Calculated 41.0 mg/dL (<130); LDL Cholesterol,Calc NonReport 41.0; Thyroid Stimulating Hormone 2.57 uIU/mL (0.358-3.740); Transferrin 229.0 mg/dL (200-360)
[2025-02-05] MEDS: HEPARIN 5000 UNIT/ML 1 ML VIAL SQ SCH (10:06)
[2025-02-05] MEDS: METHYLPRED NA SUC 1,000 MG in NA CHLORIDE 0.9% 100 ML IV SCH (10:07)
[2025-02-05] MEDS: FUROSEMIDE 40 MG/4 ML VIAL IV SCH (10:07)
--- NOTE | 2025-02-05 10:17 | RAD REPORT ---
EXAM: CT CHEST, ABDOMEN AND PELVIS WITHOUT CONTRAST CLINICAL INDICATION: Interstitial lung disease? TECHNIQUE: CT chest, abdomen and pelvis was performed without contrast, as per department protocol. A xial, sagittal and coronal reconstructions were obtained. One or more of the following dose reduction techniques were used: Automated exposure control, adjustment of the mA and/or kV according to patient size, and/or iterative reconstruction. Unless otherwise specified, incidental findings do not require dedicated imaging follow-up. Examination is limited by the lack of intravenous contrast material. COMPARISON: No prior exam. FINDINGS: LUNGS: Mild linear atelectasis in both lung bases. Minimal pulmonary interstitial edema possible. PLEURA: Trace pleural fluid bilaterally. MEDIASTINUM AND LYMPH NODES: Small pericardial effusion. A few mildly prominent lymph nodes are seen in the upper mediastinum. OSSEOUS STRUCTURES AND CHEST WALL: Intact. LIVER: Normal in size and contour. No focal lesion or biliary dilatation. Cholecystectomy clips. PANCREAS: No mass, ductal dilation, or oscar-pancreatic fluid. SPLEEN: Normal size. No focal lesion. ADRENALS: Normal; no mass. KIDNEYS: Highly atrophic left kidney. The right kidney shows no stone or hydronephrosis. 19 mm cyst s uperior lateral right kidney. URINARY BLADDER: Normal contour. GASTROINTESTINAL TRACT: No bowel obstruction, free air, significant free fluid or abscess. There is moderate diverticulosis coli of the sigmoid colon without diverticulitis. APPENDIX: Normal appendix. LYMPH NODES: No lymphadenopathy. MUSCULOSKELETAL: No acute or suspicious osseous abnormality. OTHER: Aortoiliac atherosclerosis. IMPRESSION: Mild interstitial pulmonary edema suspected with trace pleural fluid. Mild pericardial effusion. Highly atrophic left kidney. Prominent diverticulosis of the sigmoid colon without diverticulitis.
[2025-02-05 10:33] VITALS: BMI 29.2
[2025-02-05 11:13] LABS: Sqamous Epithelial <5 /HPF (None Seen); Urine Crystals Unidentified Few /HPF (None Seen); Urine Micro Reflex YN NO BILL MICROSCOPIC; Urine Yeast (Budding) Trace /HPF (None Seen)
[2025-02-05] MEDS: IPRATROPIUM BROM 0.5MG/2.5ML NEB SCH (11:45)
[2025-02-05] MEDS: BUDESONIDE 0.25 MG/2 ML NEB NEB SCH ×2 (12:00→19:25)
--- NOTE | 2025-02-05 12:06 | P.CNS ---
Date of Consult: 02/05/25 Reason for Consult: ROME, concern for acute ANCA vasculitis, GN Requesting Physician: Wm Durham Chief Complaint: Dyspnea History of Present Illness: Pt is a 74 yo female with hx of chronic HTN, renal insufficiency, atrophic left kidney who has been seeing Dr. Still in clinic and has undergone w/u with including ANCA screen which as come back with high anti-MPO titer and pt reports some progressive [place] with minimal exertion. She is fatigued and is having wheezing and is requiring o2. She is urinating she reports on Lasix. She does not report any other specific arthralgias, rashes, gross hematuria or other. Allergies codeine Adverse Reaction (Verified 10/27/21 10:39) stomach pain Home Medications: Atorvastatin Calcium [Lipitor] 20 mg PO BEDTIME 10/27/21 Hydralazine HCl 25 mg PO BID 10/27/21 Losartan Potassium [Cozaar] 100 mg PO DAILY 10/27/21 Pantoprazole Sodium 40 mg PO DAILY 10/27/21 Tramadol HCl/Acetaminophen [Ultracet Tablet] 1 each PO Q6H PRN #1 tablet 10/27/21 Trazodone HCl 100 mg PO BEDTIME 10/27/21 carvediloL [Coreg] 25 mg PO BID 10/27/21 glipiZIDE [Glipizide ER] 5 mg PO DAILY 10/27/21 - Past Medical/Surgical History Diabetic: No -: juana - Family History Father History Unknown: Yes Mother History Unknown: Yes - Social History Alcohol use: No CD- Drugs: No Caffeine use: Yes Place of Residence: Home Review of Systems General: Weakness, Malaise Eyes: Unremarkable ENT: Unremarkable Respiratory: Shortness of Breath, As per HPI Cardiovascular: Other (Accelerated HTN) Gastrointestinal: Unremarkable Genitourinary: Unremarkable Musculoskeletal: Unremarkable Integumentary: Unremarkable Neurological: Unremarkable Physical Examination Temp Pulse Resp BP Pulse Ox 98 F 74 17 178/71 H 02/05/25 08:55 02/05/25 10:07 02/05/25 09:03 02/05/25 10:07 General: Cooperative, Other (Appears ill but NAD) HEENT: Atraumatic, Normocephalic, Other (O2) Neck: Supple Respiratory: Other (coarse b/l BS, scattered wheezing b/l) Cardiovascular: Other (mild tachy, regular) Gastrointestinal: Soft and benign, Non-distended, No tenderness Musculoskeletal: No swelling, No contractures Integumentary: No rashes Neurological: Normal speech, Normal tone, Normal affect Laboratory Data (last 24 hrs) 02/05/25 02/05/25 02/05/25 05:38 05:38 05:38 WBC 4.70 Hgb 9.0 L Hct 27.2 L Plt Count 205 PT 12.7 INR 1.13 Sodium 138 Potassium 4.7 BUN 61 H Creatinine 3.71 H Glucose 125 H Total Bilirubin 0.5 AST 21 ALT 15 Alkaline Phosphatase 95 Conclusions/Impression: A/P) 1. Sub-acute Stage II ROME on underlying CKD NOS, with imaging showing smaller atrophic left kidney with renal insufficiency presentation 2nd to suspected a cute GN with microscopic hematuria present along with dipstick proteinuria and positive serology 2. 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 Pulse steroids ordered by Dr. Still followed by Rituxan although alternative would be IV Cytoxan (reduced dose given age and renal impairment) and will need to confirm that chemo meds can be given on the regular floor, Rituxan requires slow infusion with close monitoring and pre medication protocol 3. Acute hypoxic resp failure with infiltrates on imaging -cont steroids, lasix diuresis, breathing tx, monitor closely for resp decompensation 4. Hypertensive urgency, secondary HTN due to renal disorder -start CCB/Nifedipine, place on IV Hydralzine PRN, IV lasix ordered
[2025-02-05] MEDS: HYDRALAZINE HCL 20 MG/ML VIAL IV PRN (12:29)
[2025-02-05] MEDS: ALBUTEROL 2.5 MG/3 ML NEB SOL NEB SCH (13:06)
[2025-02-05] MEDS: NIFEDIPINE XL 30 MG TABLET PO SCH (13:42)
[2025-02-05] MEDS: METHYLPREDNISOLONE 40 MG INJ IV ONE (23:14)
[2025-02-05] MEDS: BUDESONIDE 0.5 MG/2 ML NEB NEB ONE (23:15)
[2025-02-06 07:17] LABS: Absolute Lymphocytes (CBC) 0.1 K/uL (0.7-4.9); Hematocrit 21.4 % (36.0-45.0); Hemoglobin 7.3 g/dL (12.0-15.0); MCH 28.2 pg (27.0-35.0); MCHC 34.0 g/dL (32.0-36.0); MCV 82.8 fL (80-100); MPV 7.5 fL (7.6-11.3); Nucleated RBC Absolute Count 0.0 (0-0); Nucleated Red Blood Cells % 0.1 % (0-0); RBC Red Blood Cell Count 2.58 M/uL (3.86-4.86); White Blood Count 4.80 thou/uL (4.3-10.9)
[2025-02-06 08:02] LABS: AST/SGOT 11 U/L (15-37); Albumin 2.3 g/dL (3.4-5.0); Albumin/Globulin Ratio 0.5 (1.1-1.8); Alkaline Phosphatase 85 U/L (45-117); Anion Gap 10.8 mEq/L (5.0-15.0); BUN Blood Urea Nitrogen 72 mg/dL (7-18); Globulin 4.2 g/dL (2.3-3.5); Glucose Level 173 mg/dL (74-106); Magnesium 1.9 mg/dL (1.6-2.4); Potassium 4.8 mEq/L (3.5-5.1); Uric Acid 8.4 mg/dL (2.6-6.0)
[2025-02-06 08:09] LABS: ALT/SGPT < 14 U/L (13-56)
[2025-02-06 08:30] LABS: Blood Morphology Comment NOTED (NOT SEEN); Ovalocytes SLIGHT; White Blood Cell Scan OK (OK)
[2025-02-06] MEDS: CALCITROL 0.25 MCG CAP PO SCH (09:05)
[2025-02-06] MEDS: VITAMIN D 5,000 UNIT CAP PO SCH (09:05)
[2025-02-06] MEDS: DOCUSATE NA 100 MG CAP PO SCH (09:08)
[2025-02-06] MEDS: EPOETIN ALFA-EPBX 10,000 UNIT/ML VIAL SQ ONE (10:07)
--- NOTE | 2025-02-06 16:37 | P.PN ---
Date of Service: 02/06/25 Subjective: Resting comfortably in bed. Still sleepy. We discussed her low hemoglobin. States she gets winded very easily with minimal exertion. Denies fevers Review of Systems is unable to be obtained Physical Examination - Physical Exam General: In no apparent distress, Mild distress HEENT: Normocephalic Neck: Supple Respiratory: Clear to auscultation bilaterally Capillary refill: <2 Seconds Gastrointestinal: Normal bowel sounds Musculoskeletal: Swelling Integumentary: No rashes Neurological: Normal speech Lymphatics: No axilla or inguinal lymphadenopathy - Studies Laboratory Data (last 24 hrs) 02/05/25 02/05/25 02/05/25 05:38 05:38 05:38 WBC 4.70 Hgb 9.0 L Hct 27.2 L Plt Count 205 PT 12.7 INR 1.13 Sodium 138 Potassium 4.7 BUN 61 H Creatinine 3.71 H Glucose 125 H Total Bilirubin 0.5 AST 21 ALT 15 Alkaline Phosphatase 95 Assessment and Plan - Plan CHF exacerbation / pulmonary edema ANCA Vasculitis Anemia Hypoxia Acute kidney injury on CKD Pulmonary edema Hypertensive urgency Anemia chronic kidney disease 02/06 - Continue steroids, rituximab, and cyclophosphamide per nephrology recommendation - Now on IV Lasix - Restoril for insomnia - Continue Colace - Continue Procardia, Coreg - Monitor hemoglobin. Currently at 7. Now on EPO Admit to floor Defer to nephrology for Rituximab and cyclophosphamide. Will start medications on Saturday, discussed with nephrology Continue breathing treatments, Lasix, steroids Now on nifedipine and hydralazine as needed Consult nephrology and pulmonology CBC and CMP in the a.m. Check iron studies Monitor blood sugars closely as she is on high-dose steroid Add Lantus 10 units nightly and continue sliding scale insulin - Advance Directives Does patient have a Living Will: No Does patient have a Durable POA for Healthcare: No
[2025-02-06 16:39] LABS: Urine Total Volume 24 Hours 1200.0 mL
[2025-02-06 17:04] LABS: 24H PROTEIN 4795.0 mg/24HR (50-100); UR PROTEIN 399.6 mg/dL (<11.9)
--- NOTE | 2025-02-06 20:31 | P.PN ---
Date of Service: 02/06/25 Vital Signs Temp Pulse Resp BP Pulse Ox 98.0 F 87 20 154/62 H 98 02/06/25 16:00 02/06/25 17:45 02/06/25 16:00 02/06/25 17:45 02/06/25 16:00 Medications Acetaminophen (Acetaminophen 650mg/Rect Supp) 650 mg NH Q6HP PRN PRN Reason: Pain scale 5-7 (Moderate) Albuterol Sulfate (Albuterol 2.5 Mg/3 Ml Neb Radha) 2.5 mg NEB [id number] [facility] Last Admin: 02/06/25 19:51 Dose: 2.5 mg Budesonide (Budesonide 0.25 Mg/2 Ml Neb) 0.25 mg NEB BIDRESP [facility] Last Admin: 02/06/25 19:51 Dose: 0.25 mg Calcitriol (Calcitrol 0.25 Mcg Cap) 0.5 mcg PO DAILY [facility] Last Admin: 02/06/25 09:05 Dose: 0.5 mcg Carvedilol (Carvedilol 12.5 Mg Tab) 12.5 mg PO BID [facility] Last Admin: 02/06/25 09:08 Dose: 12.5 mg Cholecalciferol (Vitamin D 5,000 Unit Cap) 5,000 unit PO DAILY [facility] Last Admin: 02/06/25 09:05 Dose: 5,000 unit Docusate Sodium (Docusate Na 100 Mg Cap) 100 mg PO BID [facility] Last Admin: 02/06/25 09:08 Dose: 100 mg Furosemide (Furosemide 40 Mg/4 Ml Vial) 40 mg IV DAILY [facility] Heparin Sodium (Porcine) (Heparin 5000 Unit/Ml 1 Ml Vial) 5,000 unit SQ Q8HR [facility] Last Admin: 02/06/25 17:00 Dose: Not Given Home Med (Rituximab) 1,000 mg IV ONCE ONE Stop: 02/08/25 07:01 Hydralazine HCl (Hydralazine Hcl 20 Mg/Ml Vial) 10 mg IV Q4HP PRN PRN Reason: FOR SBP>160 OR DBP>100 [facility] Last Admin: 02/06/25 15:48 Dose: 10 mg Methylprednisolone Sodium Succinate 1,000 mg/ Sodium Chloride 100 mls @ 100 mls/hr IV Q24H [facility] Stop: 02/07/25 08:59 Last Admin: 02/06/25 09:06 Dose: 100 mls Ipratropium [place] (Ipratropium Brom 0.5mg/2.5ml) 0.5 mg NEB [id number] [facility] Last Admin: 02/06/25 19:51 Dose: 0.5 mg Nifedipine (Nifedipine Xl 30 Mg Tablet) 30 mg PO DAILY [facility] Last Admin: 02/06/25 09:05 Dose: 30 mg Ondansetron HCl (Ondansetron 4 Mg/2 Ml Vial) 4 mg IV Q6HP PRN PRN Reason: NAUSEA / VOMITING Prednisone (Prednisone 20 Mg Tab) 60 mg PO DAILY [facility] Temazepam (Temazepam 15 Mg Cap) 15 mg PO Q24H [facility] Assessment/ Plan: Nephrology Persistent [place] No chest pain No acute events overnight Fatigue Insomnia Vitals, medications, blood work and imaging reviewed in the chart NAD. MMM. NCAT. Normal Respiratory Effort. S1S2. ND Abd. No C/C/E. No rash. AAO. Normal speech. 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
[2025-02-06] MEDS: TEMAZEPAM 15 MG CAP PO SCH (21:02)
[2025-02-07 07:49] LABS: Absolute Lymphocytes (CBC) 0.1 K/uL (0.7-4.9); Hematocrit 24.0 % (36.0-45.0); Hemoglobin 8.0 g/dL (12.0-15.0); MCH 28.2 pg (27.0-35.0); MCHC 33.3 g/dL (32.0-36.0); MCV 84.7 fL (80-100); MPV 7.6 fL (7.6-11.3); Nucleated RBC Absolute Count 0.0 (0-0); Nucleated Red Blood Cells % 0.0 % (0-0); RBC Red Blood Cell Count 2.83 M/uL (3.86-4.86); White Blood Count 9.30 thou/uL (4.3-10.9)
[2025-02-07] MEDS: FUROSEMIDE 40 MG/4 ML VIAL IV SCH (09:06)
--- NOTE | 2025-02-07 12:48 | P.PN ---
Date of Service: 02/07/25 Subjective: Resting comfortably in bed. Still sleepy. Asking something to help her have a bowel movement. Endorsed some shortness of breath this morning and also asking for breathing treatments. Denies fevers and chills Review of Systems is unable to be obtained Physical Examination - Physical Exam General: In no apparent distress, Mild distress HEENT: Normocephalic Neck: Supple Respiratory: Clear to auscultation bilaterally Capillary refill: <2 Seconds Gastrointestinal: Normal bowel sounds Musculoskeletal: Swelling Integumentary: No rashes Neurological: Normal speech Lymphatics: No axilla or inguinal lymphadenopathy - Studies Laboratory Data (last 24 hrs) 02/05/25 02/05/25 02/05/25 05:38 05:38 05:38 WBC 4.70 Hgb 9.0 L Hct 27.2 L Plt Count 205 PT 12.7 INR 1.13 Sodium 138 Potassium 4.7 BUN 61 H Creatinine 3.71 H Glucose 125 H Total Bilirubin 0.5 AST 21 ALT 15 Alkaline Phosphatase 95 Assessment and Plan - Plan CHF exacerbation / pulmonary edema ANCA Vasculitis Anemia Hypoxia Acute kidney injury on CKD Pulmonary edema Hypertensive urgency Anemia chronic kidney disease 02/07 - Endorses some constipation today, schedule senna-S twice daily at bedtime, MiraLAX as needed - Continue steroid, IV Lasix, breathing treatment, Rituximab. Cyclophosphamide per nephrology - Hemoglobin steady. Today it is 8. Continue to monitor. Continue EPO - Restoril for insomnia - Continue Procardia, Apresoline, Coreg 02/06 - Continue steroids, rituximab, and cyclophosphamide per nephrology recommendation - Now on IV Lasix - Restoril for insomnia - Continue Colace - Continue Procardia, Coreg - Monitor hemoglobin. Currently at 7. Now on EPO Admit to floor Defer to nephrology for Rituximab and cyclophosphamide. Will start medications on Saturday, discussed with nephrology Continue breathing treatments, Lasix, steroids Now on nifedipine and hydralazine as needed Consult nephrology and pulmonology CBC and CMP in the a.m. Check iron studies Monitor blood sugars closely as she is on high-dose steroid Add Lantus 10 units nightly and continue sliding scale insulin - Advance Directives Does patient have a Living Will: No Does patient have a Durable POA for Healthcare: No
[2025-02-07 13:29] LABS: ALT/SGPT 16 U/L (13-56); Albumin 2.4 g/dL (3.4-5.0); Albumin/Globulin Ratio 0.6 (1.1-1.8); Alkaline Phosphatase 83 U/L (45-117); Anion Gap 13.5 mEq/L (5.0-15.0); BUN Blood Urea Nitrogen 92 mg/dL (7-18); Globulin 4.1 g/dL (2.3-3.5); Glucose Level 193 mg/dL (74-106); Potassium 4.5 mEq/L (3.5-5.1)
[2025-02-07 13:32] LABS: AST/SGOT < 10 U/L (15-37)
--- NOTE | 2025-02-07 14:54 | RAD REPORT ---
EXAMINATION: TWO VIEW CHEST XR CLINICAL INDICATION: Female, 74 years old. [facility] MA[facility] Dyspnea. CHF vs Vasculitis? TECHNIQUE: 2 view radiographs of the chest were performed. COMPARISON: 02/05/2025 FINDINGS: The lungs are suboptimally inflated which limits evaluation. Developing patchy bibasilar airspace opa cities. Left costophrenic angle blunting could relate to pleural thickening or trace effusion. No pneumothorax or sizable effusion. The heart is normal in size. Mediastinal contours are unremarkable. IMPRESSION: Developing patchy bibasilar airspace opacities, could reflect progressive pulmonary edema. Underlying pneumonia would be difficult to exclude.
[2025-02-07] MEDS ORDERED: POLYETHYL GLY 3350 17 GM/DOSE PO PRN (15:54)
[2025-02-07] MEDS: FUROSEMIDE 40 MG/4 ML VIAL IV ONE (16:03)
--- NOTE | 2025-02-07 16:33 | P.PN ---
Date of Service: 02/07/25 Vital Signs Temp Pulse Resp BP Pulse Ox 97.6 F 83 15 167/74 H 97 02/07/25 12:00 02/07/25 12:00 02/07/25 12:00 02/07/25 12:00 02/07/25 12:00 Medications Acetaminophen (Acetaminophen 650mg/Rect Supp) 650 mg ND Q6HP PRN PRN Reason: Pain scale 5-7 (Moderate) Albuterol Sulfate (Albuterol 2.5 Mg/3 Ml Neb Radha) 2.5 mg NEB [id number] [facility] Last Admin: 02/07/25 12:54 Dose: 2.5 mg Budesonide (Budesonide 0.25 Mg/2 Ml Neb) 0.25 mg NEB BIDRESP [facility] Last Admin: 02/07/25 07:55 Dose: 0.25 mg Calcitriol (Calcitrol 0.25 Mcg Cap) 0.5 mcg PO DAILY [facility] Last Admin: 02/07/25 09:06 Dose: 0.5 mcg Cholecalciferol (Vitamin D 5,000 Unit Cap) 5,000 unit PO DAILY [facility] Last Admin: 02/07/25 09:06 Dose: 5,000 unit Docusate Sodium (Docusate Na 100 Mg Cap) 100 mg PO BID [facility] Last Admin: 02/07/25 09:06 Dose: 100 mg Furosemide (Furosemide 40 Mg/4 Ml Vial) 40 mg IV DAILY [facility] Last Admin: 02/07/25 09:06 Dose: 40 mg Heparin Sodium (Porcine) (Heparin 5000 Unit/Ml 1 Ml Vial) 5,000 unit SQ Q8HR [facility] Last Admin: 02/07/25 09:09 Dose: 5,000 unit Home Med (Rituximab) 1,000 mg IV ONCE ONE Stop: 02/08/25 07:01 Hydralazine HCl (Hydralazine Hcl 20 Mg/Ml Vial) 10 mg IV Q4HP PRN PRN Reason: FOR SBP>160 OR DBP>100 [facility] Last Admin: 02/06/25 15:48 Dose: 10 mg Ipratropium [place] (Ipratropium Brom 0.5mg/2.5ml) 0.5 mg NEB [id number] PRN PRN Reason: SHORTNESS OF BREATH Levalbuterol HCl (Levalbuterol 0.63 Mg/3 Ml Neb) 0.63 mg NEB [id number] PRN PRN Reason: SHORTNESS OF BREATH Metoprolol Tartrate (Metoprolol Tar 50 Mg Tab) 50 mg PO BID [facility] Nifedipine (Nifedipine Xl 30 Mg Tablet) 30 mg PO BID [facility] Ondansetron HCl (Ondansetron 4 Mg/2 Ml Vial) 4 mg IV Q6HP PRN PRN Reason: NAUSEA / VOMITING Polyethylene Glycol (Polyethyl Gly 3350 17 Gm/Dose) 17 gm PO DAILY PRN PRN Reason: CONSTIPATION Prednisone (Prednisone 20 Mg Tab) 60 mg PO DAILY [facility] Temazepam (Temazepam 15 Mg Cap) 15 mg PO Q24H [facility] Last Admin: 02/06/25 21:02 Dose: 15 mg Assessment/ Plan: Nephrology Worsening dyspnea today No chest pain No acute events overnight Fatigue Insomnia improved with Restoril Vitals, medications, blood work and imaging reviewed in the chart NAD. MMM. NCAT. Normal Respiratory Effort. S1S2. ND Abd. No C/C/E. No rash. AAO. Normal speech. 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 Garduno Acute Pulmonary Edema -Continue Lasix daily; extra dose of lasix given Anemia in chronic illness/ CKD Iron Deficiency 11% -Monitor H&H -Retacrit prn -Consider IV Iron CKD MBD Secondary HyperParathyroidism -Continue Calcitriol & Cholecalciferol Hospitalist note reviewed Case reviewed with Dr. Durham
[2025-02-07] MEDS: NIFEDIPINE XL 30 MG TABLET PO SCH (20:17)
[2025-02-07] MEDS: METOPROLOL TAR 50 MG TAB PO SCH (20:17)
[2025-02-08] MEDS ORDERED: RITUXIMAB 1000 MG IV ONE (07:00)
[2025-02-08 07:16] LABS: Absolute Lymphocytes (CBC) 0.1 K/uL (0.7-4.9); Hematocrit 26.2 % (36.0-45.0); Hemoglobin 8.4 g/dL (12.0-15.0); MCH 27.4 pg (27.0-35.0); MCHC 32.2 g/dL (32.0-36.0); MCV 85.0 fL (80-100); MPV 7.8 fL (7.6-11.3); Nucleated RBC Absolute Count 0.0 (0-0); Nucleated Red Blood Cells % 0.0 % (0-0); RBC Red Blood Cell Count 3.08 M/uL (3.86-4.86); White Blood Count 11.10 thou/uL (4.3-10.9)
[2025-02-08 07:36] LABS: Arterial Blood Carboxyhemoglob 2.7 % (0.0-1.5); Blood Gas Inspired Oxygen 21.0 %; Blood Gas Oxyhemoglobin 88.2 % (94.0-97.0); Blood O2 Saturation 87.3 % (92.0-98.5)
[2025-02-08 07:47] LABS: ALT/SGPT 19 U/L (13-56); AST/SGOT 12 U/L (15-37); Albumin 2.4 g/dL (3.4-5.0); Albumin/Globulin Ratio 0.6 (1.1-1.8); Alkaline Phosphatase 79 U/L (45-117); Anion Gap 12.7 mEq/L (5.0-15.0); BUN Blood Urea Nitrogen 105 mg/dL (7-18); Globulin 4.3 g/dL (2.3-3.5); Glucose Level 201 mg/dL (74-106); Magnesium 2.1 mg/dL (1.6-2.4); NT PRO-BNP 11044 pg/mL (<450); Potassium 4.7 mEq/L (3.5-5.1); Uric Acid 8.4 mg/dL (2.6-6.0)
[2025-02-08 07:50] LABS: C-Reactive Protein < 2.90 mg/L (<3.00)
[2025-02-08] MEDS: predniSONE 20 MG TAB PO SCH (09:21)
[2025-02-08] MEDS: IPRATROPIUM BROM 0.5MG/2.5ML NEB PRN (09:48)
[2025-02-08] MEDS: LEVALBUTEROL 0.63 MG/3 ML NEB NEB PRN (09:48)
[2025-02-08] MEDS ORDERED: RITUXIMAB ARRX IV ONE (12:00)
[2025-02-08] MEDS ORDERED: NA CHLORIDE 0.9% IV ONE (12:00)
[2025-02-08] MEDS: NA CHLORIDE 0.9% IV ONE (12:12)
[2025-02-08] MEDS: RITUXIMAB ARRX IV ONE (12:12)
--- NOTE | 2025-02-08 12:58 | P.CNS ---
Date of Consult: 02/08/25 Reason for Consult: ANCA vasculitis respiratory distress Chief Complaint: Dyspnea History of Present Illness: Patient is 74 years of age with a history of ANCA vasculitis admitted with progressive renal insufficiency developed progressive respiratory distress worsening changes on her x-ray worsening renal function despite steroids seen by nephrology this morning complained of worsening dyspnea chest x-ray looks worse has hematuria suspect from underlying glomerulonephritis very high ANCA levels no prior history of obstructive airways disease Allergies codeine Adverse Reaction (Verified 10/27/21 10:39) stomach pain Home Medications: Atorvastatin Calcium [Lipitor] 20 mg PO BEDTIME 10/27/21 Losartan Potassium [Cozaar] 100 mg PO DAILY 10/27/21 Pantoprazole Sodium 40 mg PO DAILY 10/27/21 Trazodone HCl 100 mg PO BEDTIME 10/27/21 carvediloL [Coreg] 25 mg PO BID 10/27/21 Ergocalciferol (Vitamin D2) [Vitamin D2] 1 cap PO SEECOM 02/05/25 Hydralazine HCl 1 tab PO BID 02/05/25 Sucralfate [Carafate] 1 tab PO BID 02/05/25 Torsemide [Demadex*] 1 tab PO DAILY 02/05/25 - Past Medical/Surgical History Diabetic: No -: Anxiety -: HTN -: ANCA positive -: juana - Family History Father History Unknown: Yes Mother History Unknown: Yes - Social History Alcohol use: No CD- Drugs: No Caffeine use: Yes Place of Residence: Home Review of Systems 10-point ROS is otherwise unremarkable General: Weakness Respiratory: Cough, Shortness of Breath Physical Examination Temp Pulse Resp BP Pulse Ox 97.6 F 85 20 140/63 96 02/08/25 08:00 02/08/25 09:17 02/08/25 08:00 02/08/25 09:17 02/08/25 08:00 General: Alert, Oriented x3 Respiratory: Crackles/rales, Expiratory wheezes Cardiovascular: No edema, Regular rate/rhythm, Normal S1 S2 Gastrointestinal: Normal bowel sounds, Soft and benign - Problems (1) Respiratory distress Current Visit: Yes Status: Acute Plan: Patient is 74 years of age admitted with worsening renal failure progressive changes on the chest x-ray presumed worsening of her vasculitis discussed with nephrology plan to transfer to a tertiary care center for plasmapheresis patient had a slight decline in her hemoglobin and may be from alveolar hemorrhage is currently stable denies any hemoptysis otherwise blood pressure is stable oxygenation satisfactory stable for transfer
[2025-02-08 20:13] LABS: C-ANCA Anti-Proteinase 3 <1.0 AI (<1.0)
[2025-02-08 20:51] VITALS: BP 171/78; TEMP 97.7
[2025-02-08 21:24] VITALS: O2SAT 95
--- NOTE | 2025-02-08 21:25 | P.PN ---
Date of Service: 02/08/25 Vital Signs Temp Pulse Resp BP Pulse Ox 97.7 F 91 H 17 171/78 H 97 02/08/25 20:00 02/08/25 21:10 02/08/25 20:00 02/08/25 21:10 02/08/25 20:00 Medications Acetaminophen (Acetaminophen 650mg/Rect Supp) 650 mg [place] Q6HP PRN PRN Reason: Pain scale 5-7 (Moderate) Albuterol Sulfate (Albuterol 2.5 Mg/3 Ml Neb Radha) 2.5 mg NEB [id number] [facility] Last Admin: 02/08/25 19:50 Dose: 2.5 mg Budesonide (Budesonide 0.25 Mg/2 Ml Neb) 0.25 mg NEB BIDRESP [facility] Last Admin: 02/08/25 19:50 Dose: 0.25 mg Calcitriol (Calcitrol 0.25 Mcg Cap) 0.5 mcg PO DAILY [facility] Last Admin: 02/08/25 09:20 Dose: 0.5 mcg Cholecalciferol (Vitamin D 5,000 Unit Cap) 5,000 unit PO DAILY [facility] Last Admin: 02/08/25 09:21 Dose: 5,000 unit Docusate Sodium (Docusate Na 100 Mg Cap) 100 mg PO BID [facility] Last Admin: 02/08/25 21:10 Dose: 100 mg Furosemide (Furosemide 40 Mg/4 Ml Vial) 40 mg IV DAILY [facility] Last Admin: 02/08/25 09:17 Dose: 40 mg Heparin Sodium (Porcine) (Heparin 5000 Unit/Ml 1 Ml Vial) 5,000 unit SQ Q8HR [facility] Last Admin: 02/08/25 16:45 Dose: 5,000 unit Hydralazine HCl (Hydralazine Hcl 20 Mg/Ml Vial) 10 mg IV Q4HP PRN PRN Reason: FOR SBP>160 OR DBP>100 [facility] Last Admin: 02/08/25 00:53 Dose: 10 mg Ipratropium [place] (Ipratropium Brom 0.5mg/2.5ml) 0.5 mg NEB [id number] PRN PRN Reason: SHORTNESS OF BREATH Last Admin: 02/08/25 09:48 Dose: 0.5 mg Levalbuterol HCl (Levalbuterol 0.63 Mg/3 Ml Neb) 0.63 mg NEB [id number] PRN PRN Reason: SHORTNESS OF BREATH Last Admin: 02/08/25 09:48 Dose: 0.63 mg Metoprolol Tartrate (Metoprolol Tar 50 Mg Tab) 50 mg PO BID [facility] Last Admin: 02/08/25 21:10 Dose: 50 mg Nifedipine (Nifedipine Xl 30 Mg Tablet) 30 mg PO BID [facility] Last Admin: 02/08/25 21:10 Dose: 30 mg Ondansetron HCl (Ondansetron 4 Mg/2 Ml Vial) 4 mg IV Q6HP PRN PRN Reason: NAUSEA / VOMITING Polyethylene Glycol (Polyethyl Gly 3350 17 Gm/Dose) 17 gm PO DAILY PRN PRN Reason: CONSTIPATION Prednisone (Prednisone 20 Mg Tab) 60 mg PO DAILY [facility] Last Admin: 02/08/25 09:21 Dose: 60 mg Temazepam (Temazepam 15 Mg Cap) 15 mg PO Q24H [facility] Last Admin: 02/07/25 20:18 Dose: 15 mg Assessment/ Plan: Nephrology Persistent dyspnea No chest pain No acute events overnight Fatigue Vitals, medications, blood work and imaging reviewed in the chart NAD. MMM. NCAT. Normal Respiratory Effort. S1S2. ND Abd. No C/C/E. No rash. AAO. Normal speech. 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 CKD III with Proteinuria and Hematuria Atrophic Left Kidney -No NSAIDs -Pulse Steroids completed; continue daily prednisone -Rituximab X1 dose today Recommend plasmapheresis -May not be a good candidate for a renal biopsy due to the atrophic left kidney HTN with CKD -Continue Metoprolol; may need to titrate dose -Continue Nifedipine XL 30mg BID Respiratory Failure, A/C may be related to ANCA vasculitis -Pulse steroids -Rituximab X1 dose today -Appreciate pulmonary input Acute Pulmonary Edema -Continue Lasix daily Anemia in chronic illness/ CKD Iron Deficiency 11% -Monitor H&H -Retacrit prn -Consider IV Iron CKD MBD Secondary HyperParathyroidism -Continue Calcitriol & Cholecalciferol Hospitalist note reviewed Case reviewed with Dr. Vale Patient care 45min Initiated an urgent transfer last night to have the patient transferred to a facility that provides plasmapheresis
[2025-02-09 10:47] LABS: P-ANCA Anti-Myeloperoxidase Ab 551.4 AI (<1.0)
== END 2025-02-08 21:17 | disposition short-term general hospital (02) | DRG 299 ==
LOC: ER 05:24 → 4TH 07:17
PROVIDERS: ADMIT Family Medicine; ATTEND Hospitalist
PROC: 4A033R1 Measurement of Arterial Saturation, Peripheral, Percutaneous Approach (ICD-10-PCS; principal; 2025-02-08)
DX: I77.82 Antineutrophilic cytoplasmic antibody [ANCA] vasculitis (principal); J96.01 Acute respiratory failure with hypoxia; M31.7 Microscopic polyangiitis; I13.0 Hypertensive heart and chronic kidney disease with heart failure and stage 1 through stage 4 chronic kidney disease, or unspecified chronic kidney disease; N17.9 Acute kidney failure, unspecified; N25.81 Secondary hyperparathyroidism of renal origin; I50.9 Heart failure, unspecified; N18.30 Chronic kidney disease, stage 3 unspecified; E11.22 Type 2 diabetes mellitus with diabetic chronic kidney disease; D63.1 Anemia in chronic kidney disease; D50.9 Iron deficiency anemia, unspecified; N26.1 Atrophy of kidney (terminal); I16.0 Hypertensive urgency; E78.00 Pure hypercholesterolemia, unspecified; G47.00 Insomnia, unspecified; R31.9 Hematuria, unspecified; Z88.5 Allergy status to narcotic agent; Z79.02 Long term (current) use of antithrombotics/antiplatelets; Z79.899 Other long term (current) drug therapy; Z87.891 Personal history of nicotine dependence; Z79.84 Long term (current) use of oral hypoglycemic drugs
CPT/HCPCS: 36415; 36600; 71045; 71046; 71250; 74176; 80048; 80053; 80061; 80076; 81001; 82805; 82947; 83036; 83540; 83735; 83880; 84100; 84156; 84443; 84466; 84484; 84550; 85025; 85610; 86021; 86140; 86850; 86900; 86901; 93005; 93306; 94010; 94640; 96374; 97161; 97530; 99285; G0238; J0360; J1644; J1938; J2919; J7040; J7512; J7613; J7614; J7626; J7634; J7644; Q5106; Q5123

== ENCOUNTER 2025-03-08 05:44 | Emergency (ER) | payer OTHER ==
[2025-03-08] MEDS ORDERED: ROCURONIUM 50 MG/5 ML VIAL IV ONE (05:45)
[2025-03-08] MEDS ORDERED: ETOMIDATE 20 MG/10 ML VIAL IV ONE (05:45)
[2025-03-08 06:35] LABS: Absolute Lymphocytes (CBC) 0.9 K/uL (0.7-4.9); Hematocrit 16.9 % (36.0-45.0); MCH 29.8 pg (27.0-35.0); MCHC 33.4 g/dL (32.0-36.0); MCV 89.0 fL (80-100); MPV 8.5 fL (7.6-11.3); Nucleated RBC Absolute Count 0.0 (0-0); Nucleated Red Blood Cells % 0.2 % (0-0); RBC Red Blood Cell Count 1.90 M/uL (3.86-4.86); White Blood Count 4.60 thou/uL (4.3-10.9)
[2025-03-08 06:42] LABS: PT Prothrombin Time 12.6 SECONDS (10-13.0); Protime INR 1.12
[2025-03-08 06:44] LABS: Hemoglobin 5.7 g/dL (12.0-15.0)
[2025-03-08 06:51] LABS: ALT/SGPT 19 U/L (13-56); AST/SGOT 17 U/L (15-37); Albumin 2.5 g/dL (3.4-5.0); Albumin/Globulin Ratio 1.1 (1.1-1.8); Alkaline Phosphatase 44 U/L (45-117); Anion Gap 14.5 mEq/L (5.0-15.0); BUN Blood Urea Nitrogen 134 mg/dL (7-18); Globulin 2.3 g/dL (2.3-3.5); Glucose Level 188 mg/dL (74-106); Magnesium 1.9 mg/dL (1.6-2.4); NT PRO-BNP 1496 pg/mL (<450); Potassium 5.5 mEq/L (3.5-5.1); Troponin High Sensitivity 19.5 pg/mL (<58.9)
[2025-03-08 06:57] LABS: Bilirubin Indirect, Calculated 0.2 mg/dL (0.2-0.8)
[2025-03-08 07:04] LABS: Influenza A Ag Negative; Influenza B Ag Negative; SARS-CoV-2 Antigen Rapid Res Negative (Negative)
[2025-03-08] MEDS ORDERED: NA CHLORIDE 0.9% 250 ML ONE ×2 (07:08→10:41)
[2025-03-08] MEDS ORDERED: PANTOPRAZOLE 40 MG INJ ONE (07:11)
[2025-03-08] MEDS ORDERED: PANTOPRAZOLE INJ 80 MG in NA CHLORIDE 0.9% 250 ML IV ONE (07:30)
[2025-03-08] MEDS ORDERED: NOREPINEPHRINE BITARTRATE/D5W 4 MG/250 ML BAG IV ONE (07:42)
--- NOTE | 2025-03-08 08:30 | RAD REPORT ---
Procedure: Chest Single View HISTORY: Endotracheal tube placement FINDINGS: Endotracheal tube has been placed with its tip at the level of the aortic arch. Nasogastric tube coiled within the gastric fundus. The tip lies 2 cm from the GE junction
--- NOTE | 2025-03-08 09:21 | RAD REPORT ---
EXAM: CT CHEST, ABDOMEN AND PELVIS WITHOUT CONTRAST CLINICAL INDICATION: Chest and abdominal pain. Shortness of breath. Rectal bleeding. TECHNIQUE: CT chest, abdomen and pelvis was performed, without IV contrast, as per department protoco l. Axial, sagittal and coronal reconstructions were obtained. One or more of the following dose reduction techniques were used: Automated exposure control, adjustment of the mA and/or kV according to the patient size, and/or iterative reconstruction. Unless otherwise specified, incidental findings do not require dedicated imaging follow-up. The lack of IV and oral contrast limits evaluation of the mediastinum, shanell, vessels, organs and obi l. COMPARISON: January 2025 FINDINGS: Mild bilateral groundglass and interstitial lung opacities. No mediastinal or hilar lymphadenopathy seen. No pleural effusion. Small to moderate pericardial effusion. Endotracheal tube in good position. A nasogastric tube is coiled within the gastric lung base. Lies 4 cm from the GE junction. Liver, spleen, adrenals appear grossly normal. Atrophic pancreas. Atrophic left kidney. Small simple cysts left kidney. No follow-up recommended. 2 cm right renal cyst . No follow-up recommended. No hydronephrosis. Atherosclerosis. No adnexal mass. There is no evidence of diverticulitis. Normal appendix IMPRESSION: Mild bilateral pulmonary opacities probably mild pulmonary edema Small to moderate pericardial effusion
--- NOTE | 2025-03-08 09:24 | RAD REPORT ---
Procedure: Chest Single View HISTORY: Shortness of breath COMPARISON: January 2025 FINDINGS: Mild bilateral pulmonary opacities. No significant pleural effusion noted. The heart is mildly to moderately enlarged. IMPRESSION: Mild bilateral pulmonary opacities probably pulmonary edema
[2025-03-08] MEDS ORDERED: LORazepam 2 MG/ML VIAL ONE (09:36)
[2025-03-08] MEDS ORDERED: FUROSEMIDE 40 MG/4 ML VIAL ONE (09:36)
--- NOTE | 2025-03-08 09:43 | EDPHYS ---
Physician Documentation [facility] Name: Aiyana Ham Age: 74 yrs Sex: Female : 1950 Arrival Date: 03/08/2025 Time: 05:44 Bed [id number] Private MD: ED Physician Pardeep Reich HPI: 03/08 05:56 This 74 yrs old Female presents to ER via Unassigned with complaints of sp3 Shortness Of Breath. 05:56 74-year-old female with history of hypertension, gastritis presents to the ED with sp3 chief complaint dyspnea on exertion for the last 2 to 3 days. She also states she has had some "bleeding from her rectum" which has been bright in nature. No wei dark stools, melena black tarry substance. She has not had a GI bleed in the past. She states anytime she exerts himself she becomes short of breath. No changes in recent medications and no travel history. Limited ROS history and physical secondary to patient being not cooperative.. Historical: - Allergies: 05:57 Codeine; br2 - PMHx: 05:57 Anxiety; Hypertension; Congestive heart failure; Gastroesophageal reflux disease; br2 - PSHx: 05:57 Unable to Obtain; br2 - Immunization history:: Adult Immunizations unknown. - Infectious Disease History:: Denies. - Social history:: Smoking status: unknown. ROS: 06:00 Constitutional: Negative for fever, chills, and weight loss, Eyes: Negative for injury, sp3 pain, redness, and discharge, ENT: Negative for injury, pain, and discharge, Neck: Negative for injury, pain, and swelling, Cardiovascular: Negative for chest pain, palpitations, and edema, Abdomen/GI: Negative for abdominal pain, nausea, vomiting, diarrhea, and constipation, Back: Negative for injury and pain, MS/Extremity: Negative for injury and deformity, Skin: Negative for injury, rash, and discoloration, Neuro: Negative for headache, weakness, numbness, tingling, and seizure, Psych: Negative for depression, anxiety, suicide ideation, homicidal ideation, and hallucinations, Allergy/Immunology: Negative for hives, rash, and allergies, Endocrine: Negative for neck swelling, polydipsia, polyuria, polyphagia, and marked weight changes, 06:00 All other systems are negative, Exam: 06:00 Constitutional: This is a well developed, well nourished patient who is awake, alert, sp3 and in no acute distress. Head/Face: Normocephalic, atraumatic. Eyes: Pupils equal round and reactive to light, extra-ocular motions intact. Lids and lashes normal. Conjunctiva and sclera are non-icteric and not injected. Cornea within normal limits. Periorbital areas with no swelling, redness, or edema. Neck: Trachea midline, no thyromegaly or masses palpated, and no cervical lymphadenopathy. Supple, full range of motion without nuchal rigidity, or vertebral point tenderness. No Meningismus. Chest/axilla: Normal chest wall appearance and motion. Nontender with no deformity. No lesions are appreciated. Cardiovascular: Regular rate and rhythm with a normal S1 and S2. No gallops, murmurs, or rubs. Normal PMI, no JVD. No pulse deficits. Abdomen/GI: Soft, non-tender, with normal bowel sounds. No distension or tympany. No guarding or rebound. No evidence of tenderness throughout. Skin: Warm, dry with normal turgor. Normal color with no rashes, no lesions, and no evidence of cellulitis. MS/ Extremity: Pulses equal, no cyanosis. Neurovascular intact. Full, normal range of motion. Neuro: Awake and alert, GCS 15, oriented to person, place, time, and situation. Cranial nerves II-XII grossly intact. Motor strength 5/5 in all extremities. Sensory grossly intact. Cerebellar exam normal. Normal gait. Psych: Awake, alert, with orientation to person, place and time. Behavior, mood, and affect are within normal limits. 06:00 Respiratory: Coarse breath sounds with rales bilaterally. Mild pedal edema also noted., 06:04 ECG was reviewed by the Attending Physician. EKG demonstrates sinus tachycardia at 102 sp3 bpm with normal intervals QTc 463, normal QRS, normal axis nonspecific diffuse ST/T changes without evidence of acute ischemia in suboptimal EKG. Vital Signs: 05:53 BP 93 / 49; Pulse 93; Resp 24; Temp 98.5; Pulse Ox 100% on 2 lpm NC; Weight 75.3 kg; br2 Height 5 ft. 1 in. ; 06:42 BP 81 / 44; Pulse 85; Resp 25; Temp 98.5; Pulse Ox 100% ; Pain 0/10; bm8 07:00 Weight 77 kg (M); zm 07:45 BP 89 / 50; Pulse 89; Resp 14; Temp 97.1; Pulse Ox 100% on ETT vent; zm 08:00 BP 141 / 59; Pulse 96; Resp 14; Temp 97.1; Pulse Ox 100% on ETT vent; zm 08:01 BP 141 / 59; Pulse 96; Resp 14; Pulse Ox 100% ; rn 08:15 BP 123 / 57; Pulse 98; Resp 15; Pulse Ox 100% on ETT vent; zm 08:20 BP 89 / 65; Pulse 97; Resp 15; Temp 97.1; Pulse Ox 100% on ETT vent; zm 08:30 BP 136 / 61; Pulse 96; Resp 22; Pulse Ox 100% on ETT vent; zm 08:40 BP 136 / 70; Pulse 95; Resp 18; Pulse Ox 100% on ETT vent; zm 09:00 BP 151 / 66; Pulse 91; Resp 20; Pulse Ox 100% on ETT vent; zm 09:15 BP 116 / 54; Pulse 94; Resp 21; Pulse Ox 100% on ETT vent; zm 09:20 BP 89 / 47; Pulse 86; Resp 16; Temp 97.1; Pulse Ox 100% on ETT vent; zm 09:30 BP 95 / 62; Pulse 87; Resp 21; Pulse Ox 100% on ETT vent; zm 09:45 BP 124 / 68; Pulse 85; Resp 19; Pulse Ox 100% on ETT vent; zm 10:00 BP 130 / 75; Pulse 85; Resp 19; Pulse Ox 100% on ETT vent; zm 10:15 BP 145 / 67; Pulse 80; Resp 15; Pulse Ox 100% on ETT vent; zm 10:30 BP 147 / 69; Pulse 81; Resp 13; Pulse Ox 100% on ETT vent; zm 10:45 BP 96 / 47; Pulse 81; Resp 15; Pulse Ox 100% on ETT vent; zm 11:00 BP 128 / 57; Pulse 78; Resp 15; Pulse Ox 100% on ETT vent; zm 11:15 BP 130 / 59; Pulse 76; Resp 14; Temp 97.1; Pulse Ox 100% on ETT vent; zm 05:53 Body Mass Index 31.37 (77.00 kg, 154.94 cm) br2 06:42 Pain Scale: Adult bm8 06:42 provider informed of low BP. bm8 Geovany Coma Score: 06:42 Eye Response: to voice(3). Motor Response: obeys commands(6). Verbal Response: bm8 confused(4). Total: 13. 07:00 Eye Response: spontaneous(4). Motor Response: obeys commands(6). Verbal Response: zm oriented(5). Total: 15. Procedures: 07:56 Intubation: Ventilated with 100% NRB prior to procedure. O2 saturation prior to overnight cashier was 97 %. Intubated orally using # 3 Rosalina blade with 7.0 mm ETT. was successful on first attempt. Cricoid pressure applied during procedure. Tube secured with ETT davis at right side of mouth measured 23 cm at teeth. Placement verified by CO2 detector with (+) color change, auscultating bilateral breath sounds, O2 saturation after procedure was 100 %. Patient tolerated well. Central Line: the site was prepped with Betadine, in sterile fashion, a triple lumen catheter was inserted, in the right femoral vein, in 1 attempts. placement was verified, by blood return, the site was dressed with Tegaderm, using sterile technique, the patient tolerated the procedure, well. MDM: 05:54 Medical Screening Exam initiated sp3 06:01 Data reviewed: vital signs, nurses notes, EMS record, old medical records, lab test sp3 result(s), EKG, radiologic studies. ED course: 74-year-old female with PMH above now with dyspnea on exertion. Also reports of rectal bleeding for 1 day. Differential diagnosis includes CHF exacerbation, pneumonia, bronchitis, undiagnosed COPD, hypertensive urgency causing pulmonary edema, among many others including ACS. Clinically are not highly suspicious of PE, sepsis, shock or any other critical process. Workup will include EKG, chest x-ray and general routine labs as well as viral swabs. Disposition pending workup and patient course with probable admission.. 06:16 ED course: Patient has had black tarry stool while in the ED. Type and screen added and sp3 patient will likely need to be transferred for GI coverage. Patient will be signed out to daytime physician for final reevaluation and disposition.. 06:38 ED course: Patient having active GI bleed Black tarry stools mixed with clots. 2 units sp3 of PRBCs ordered.. 07:10 Transition of care: Care assumed from Wanda Colunga MD. rn 07:10 ED course: Patient signed out to me by Dr. Colunga, hemoglobin came back at the end of rn his shift, he ordered stat emergency release blood. Patient is here for melena for 2 days, malaise and shortness of breath. Patient also has congestive heart failure. Emergency release blood just arrived, will start. Will monitor closely with her respiratory status, need for Lasix and possible airway intervention.. 07:57 ED course: Patient doing much better, blood pressure currently 144/65, heart rate 96, rn oxygen 100% on ET tube and ventilator. Started Levophed for hypotension. Updated family.. 09:38 Differential diagnosis: CHF exacerbation, Myocardial Infarction pneumonia, Pneumothorax rn pulmonary edema, GI bleed. 09:39 Independent interpretation of the following test(s) in the Emergency Department EKG: rn See my EKG interpretation above X-Ray: My interpretation is Chest x-ray images show appropriate ET tube placement with mild pulmonary edema per my interpretation. laborer laboratory: rate is 88 beats/min, Rhythm is normal sinus rhythm, regular, with no ectopy, Interpretation: normal rate, normal rhythm. Counseling: I had a detailed discussion with the patient and/or guardian regarding the historical points, exam findings, and any diagnostic results supporting the discharge/admit diagnosis, lab results, radiology results, the need for further work-up and treatment in the hospital, the need to transfer to another facility, for higher level of care, [facility] does not immediately have the required specialist. Response to treatment: the patient's symptoms have mildly improved after treatment, and as a result, I will admit patient. 09:40 Consideration of Admission/Observation Patient was admitted/placed on observation. rn Escalation of care including admission/observation considered. I considered the following discharge prescriptions or medication management in the emergency department Medications were administered in the Emergency Department. See MAR. Test considered but Not performed: CT: CT angiogram considered but not done due to poor renal function. Historians other than the Patient: Daughter/Son: Majority of story in [facility] is from daughter. Care significantly affected by the following chronic conditions: Hypertension, Congestive Heart Failure. 03/08 05:52 Order name: Type And Screen sp3 03/08 05:52 Order name: Basic Metabolic Panel; Complete Time: 07:01 3 03/08 05:52 Order name: CBC with Diff; Complete Time: 06:57 3 03/08 05:52 Order name: LFT's; Complete Time: 07:01 3 03/08 05:52 Order name: Magnesium; Complete Time: 07:01 3 03/08 05:52 Order name: NT PRO-BNP; Complete Time: 07:01 3 03/08 05:52 Order name: PT-INR; Complete Time: 06:57 3 03/08 05:52 Order name: Troponin HS; Complete Time: 07:01 3 03/08 05:52 Order name: Lactate w/ 2H reflex if indic.; Complete Time: 06:57 [facility] 03/08 05:52 Order name: Blood Culture Adult (2) [facility] 03/08 05:52 Order name: COVID-19 Ag + Flu A+B Ag; Complete Time: 07:07 3 03/08 06:17 Order name: Type And Screen [facility] 03/08 07:03 Order name: Packed RBC Leukored [facility] 03/08 09:28 Order name: Hemoglobin; Complete Time: 10:19 rn 03/08 05:52 Order name: XRAY Chest (1 view); Complete Time: 09:27 3 03/08 07:57 Order name: Chest Single View XRAY; Complete Time: 08:39 hb 03/08 08:13 Order name: Chest Abd Pelvis Wo Con; Complete Time: 09:27 EDMS 03/08 05:52 Order name: EKG; Complete Time: 05:52 3 03/08 05:52 Order name: Cardiac monitoring; Complete Time: 06:29 3 03/08 05:52 Order name: EKG - Nurse/Tech; Complete Time: 06:29 3 03/08 05:52 Order name: IV Saline Lock; Complete Time: 06:29 3 03/08 05:52 Order name: Labs collected and sent; Complete Time: 06:29 3 03/08 05:52 Order name: O2 Per Protocol; Complete Time: 06:29 3 03/08 05:52 Order name: O2 Sat Monitoring; Complete Time: 06:29 3 03/08 07:07 Order name: Transfuse; Complete Time: 07:23 rn 03/08 16:49 Order name: Restraint:Non-Violent; Complete Time: 16:49 ap3 Administered Medications: 06:17 CANCELLED (error): potassium [id number] meq PO once sp3 07:08 CANCELLED (Duplicate Order): ns 0.9% 1000 ml IV at 1000 ml once; to be given as a bolus rn over 60 minutes 07:14 Drug: Pantoprazole IVP 40 mg IVP once Route: IVP; Site: left antecubital; ar8 11:42 Follow up: Response: No adverse reaction zm 07:32 Drug: Etomidate IVP 20 mg IVP once Route: IVP; Site: left antecubital; zm 07:40 Follow up: Response: No adverse reaction; RASS: Deep sedation (-4) zm 07:32 Drug: Rocuronium IVP 50 mg IVP once Route: IVP; Site: left antecubital; zm 07:40 Follow up: Response: No adverse reaction; RASS: Deep sedation (-4) zm 07:45 Drug: Norepinephrine IV 0.1 mcg/kg/min IV at calculated rate Per protocol; (Standard zm concentration 4 mg / 250 mL D5W); Recommended max rate 3 mcg/kg/min; Titrate 0.05 mcg/kg/min as often as every 5 minutes to achieve goal (see titration policy); Goal parameter MAP greater than 65 mmHg. Route: IV; Rate: calculated rate; Site: right femoral; 07:55 Follow up: Rate change 4 mcg/min zm 08:20 Follow up: Rate change 5 mcg/min zm 09:20 Follow up: Rate change 7 mcg/min zm 09:35 Follow up: Rate change 10 mcg/min ap3 10:03 Follow up: Rate change 12 mcg/min ap3 11:30 Follow up: IV Status: Infusion continued upon transfer ap3 11:35 Follow up: Rate change 10 mcg/min zm 07:50 Drug: Pantoprazole IV 8 mg/hr IV at 25 ml/hr continuous; (Standard dilution is 80 mg in zm 250 mL NS) Route: IV; Rate: 25 ml/hr; Site: right femoral; 11:43 Follow up: Response: No adverse reaction; IV Status: Infusion continued upon transfer zm 09:05 Drug: Propofol IV 5 mcg/kg/min IV at calculated rate See Administration Instructions; zm Standard concentration 1000 mg / 100 mL; Recommended max rate 50 mcg/kg/min; Titrate 5 mcg/kg/min every 5 minutes to achieve goal (see titration policy); Goal parameter RASS score 0 to -2 Route: IV; Rate: calculated rate; Site: right femoral; 09:15 Follow up: Rate change 40 bolus; verbal bedside order per provider 40 mg rapid bolus zm 09:30 Follow up: Rate change 10 mcg/kg/min zm 11:15 Follow up: Rate change 15 mcg/kg/min zm 11:42 Follow up: Response: RASS: Moderate sedation (-3); IV Status: Infusion continued upon zm transfer 09:40 Drug: Ativan IVP 1 mg IVP once Route: IVP; Site: left antecubital; zm 10:10 Follow up: Response: No adverse reaction; RASS: Light sedation (-2) zm 09:45 Drug: Furosemide IVP 40 mg IVP once; give over 2 minutes Route: IVP; Site: left zm antecubital; 11:44 Follow up: Response: No adverse reaction zm 10:00 Drug: Ketamine IVP 50 mg IVP once Route: IVP; Site: left antecubital; zm 10:15 Follow up: Response: No adverse reaction; RASS: Moderate sedation (-3) zm 10:46 Drug: Midazolam IVP or IV 3 mg IVP once Route: IVP; Site: left antecubital; ap3 11:00 Follow up: Response: No adverse reaction; RASS: Moderate sedation (-3) Disposition: 09:40 Critical Care:. rn Disposition Summary: 03/08/25 09:42 Transfer Ordered Notes: Transfer Location: [facility] rn Reason: Higher level of care rn Condition: Stable rn Problem: new rn Symptoms: have improved rn Accepting Physician: (03/08/25 16:50) devin Diagnosis - GI Bleed/ Gastrointestinal hemorrhage, unspecified rn - Acute pulmonary edema rn - Pleural effusion, not elsewhere classified rn - Anemia, unspecified rn - Pericardial effusion (noninflammatory) rn Forms: - Medication Reconciliation Form rn - SBAR form yarn carrier time excluding procedures: 09:40 Critical care time: Bedside Care: 70 minutes, Consultation: 5 minutes, Family rn Intervention: 5 minutes. Total time: 80 minutes Signatures: Dispatcher [employer] EDIN Pardeep Reich MD MD rn Baxter, Heather, RN Taylor Santos RN RN [email or web address] Wanda Colunga MD MD sp3 Michela Giraldo, RN JORGE zm Sabina Templeton RN RN br2 Pola Parker, RN RN ar8 Corrections: (The following items were deleted from the chart) 05:52 05:52 BASIC METABOLIC PANEL+C.LAB.BRZ ordered. EDMS EDMS 05:52 05:52 CBC+H.LAB.BRZ ordered. EDMS EDMS 05:52 05:52 HEPATIC FUNCTION+C.LAB.BRZ ordered. EDMS EDMS 05:52 05:52 MAGNESIUM+C.LAB.BRZ ordered. EDMS EDMS 05:52 05:52 PROBNP+C.LAB.BRZ ordered. EDMS EDMS 05:52 05:52 PROTIME (+INR)+COAG.LAB.BRZ ordered. EDMS EDMS 05:52 05:52 Troponin High Sensitivity+C.LAB.BRZ ordered. EDMS EDMS 05:52 05:52 TYPE AND SCREEN+BB.LAB.BRZ ordered. EDMS EDMS 05:52 05:52 LACTATE+C.LAB.BRZ ordered. EDMS EDMS 05:52 05:52 BLOOD CULTURE*+BA.LAB.BRZ ordered. EDMS EDMS 05:52 05:52 COVID-19 Ag + Flu A+B Ag+I.LAB.BRZ ordered. EDMS EDMS 05:58 05:56 74-year-old female with history of hypertension, diabetes presents to the ED with sp3 chief complaint dyspnea on exertion for the last 2 to 3 days. She also states she has had some "bleeding from her rectum" which has been bright in nature. No wei dark stools, melena black tarry substance. She has not had a GI bleed in the past. She states anytime she exerts himself she becomes short of breath. No changes in recent medications and no travel history. Limited ROS history and physical secondary to patient being not cooperative.. sp3 06:17 06:17 Potassium Chloride PO 40 mEq PO once ordered. sp3 sp3 07:08 06:57 NS 0.9% IV 1000 ml IV at 1000 ml once; to be given as a bolus over 60 minutes rn ordered. sp3 07:21 06:19 Abdomen Angio+CT.RAD.BRZ ordered. EDMS EDMS 07:21 06:19 Pelvis Angio+CT.RAD.BRZ ordered. EDMS EDMS 07:57 07:57 Chest Single View+RAD.RAD.BRZ ordered. EDMS EDMS 08:13 07:08 Abdomen ordered. EDMS EDMS 12:35 09:42 Dr. jorge lainez 16:50 12:35 Dr. lainez hb
--- NOTE | 2025-03-08 09:43 | ER ---
Nurse's Notes [facility] Name: Aiyana Ham Age: 74 yrs Sex: Female : 1950 Arrival Date: 03/08/2025 Time: 05:44 Bed [id number] Private MD: Diagnosis: GI Bleed/ Gastrointestinal hemorrhage, unspecified;Acute pulmonary edema;Pleural effusion, not elsewhere classified;Anemia, unspecified;Pericardial effusion (noninflammatory) Presentation: 03/08 05:53 Chief complaint: Patient states: SOB AND RECTAL BLEEDING. Coronavirus screen: Client br2 denies travel out of the [place] in the last 14 days. Ebola Screen: Patient denies exposure to infectious person. Initial Sepsis Screen: Does the patient meet any 2 criteria? RR > 20 per min. HR > 90 bpm. Does the patient have a suspected source of infection? No. Patient's initial sepsis screen is negative. Risk Assessment: Do you want to hurt yourself or someone else? Patient reports no desire to harm self or others. Onset of symptoms is unknown. 05:53 Method Of Arrival: EMS: [facility] br2 05:53 Acuity: [place] 3 br2 07:00 Acuity: [place] 1 hb Triage Assessment: 05:57 General: Appears uncomfortable, Behavior is drowsy. br2 Historical: - Allergies: 05:57 Codeine; br2 - PMHx: 05:57 Anxiety; Hypertension; Congestive heart failure; Gastroesophageal reflux disease; br2 - PSHx: 05:57 Unable to Obtain; br2 - Immunization history:: Adult Immunizations unknown. - Infectious Disease History:: Denies. - Social history:: Smoking status: unknown. Screenin:42 [facility] ED Fall Risk Assessment (Adult) History of falling in the last 3 months, bm8 including since admission No falls in past 3 months (0 pts) Confusion or Disorientation Yes (5 pts) Intoxicated or Sedated No (0 pts) Impaired Gait Yes (1 pt) Mobility Assist Device Used Yes (1 pt) Altered Elimination Yes (1 pt) Score/Fall Risk Level 3 or more points = High Risk Oriented to surroundings, Maintained a safe environment, Educated pt \T\ family on fall prevention, incl call for assistance when getting out of bed, Assessed \T\ reinforced patient's understanding of fall precautions, Hourly rounding (assess needs \T\ fall precautionary measures) done, Used ambulatory aids as needed (educated on \T\ assisted with), Used gait belt as appropriate Implemented a Fall Risk Plan of Care. Abuse screen: Denies threats or abuse. Nutritional screening: No deficits noted. Tuberculosis screening: No symptoms or risk factors identified. Assessment: 06:42 Reassessment: Patient appears in no apparent distress at this time. Patient and/or bm8 family updated on plan of care and expected duration. Pain level reassessed. pt had black tarry stool bowel movement with clots mixed in., Linern changed, pt cleaned, diaper put on female pur wic in place. General: Appears obese, well groomed, well developed, Behavior is drowsy, listless. Pain: Denies pain. Neuro: Level of Consciousness is lethargic, Oriented to person, Appropriate for age. Cardiovascular: Denies chest pain, Heart tones S1 S2 present Capillary refill < 3 seconds in bilateral fingers Patient's skin is warm and dry. Rhythm is sinus rhythm. Respiratory: Airway is patent Respiratory effort is even, unlabored, Respiratory pattern is regular, symmetrical, Breath sounds are clear bilaterally. Breath sounds with crackles in left posterior lower lobe Breath sounds are diminished in left upper lobe, left lower lobe, left posterior upper lobe and left posterior lower lobe the patient has mild shortness of breath. GI: Abdomen is round non-distended, Stools are reported to be loose, Last BM at 06:46. Bowel sounds present X 4 quads. Abd is soft and non tender X 4 quads. : No deficits noted. No signs and/or symptoms were reported regarding the genitourinary system. EENT: No deficits noted. No signs and/or symptoms were reported regarding the EENT system. Derm: No signs and/or symptoms reported regarding the dermatologic system. Bruising that is dark purple, on right lower quadrant and left lower quadrant evidence of previous lovenox shots. Musculoskeletal: No signs and/or symptoms reported regarding the musculoskeletal system. 07:00 General: Appears uncomfortable, ill, Behavior is drowsy, listless. zm 07:00 Pain: Denies pain. Neuro: Level of Consciousness is obeys commands, Oriented to person, zm place, situation. Cardiovascular: Heart tones S1 S2 present pale and dry. Respiratory: Airway is patent Respiratory effort is even, unlabored, Respiratory pattern is regular, symmetrical, Breath sounds with crackles in right upper lobe and left upper lobe Breath sounds are diminished in left lower lobe. GI: Abdomen is round non-distended, bruised on right lower quadrant and left lower quadrant Bowel sounds present X 4 quads. Abd is soft and non tender X 4 quads. 10:15 Reassessment: Report given to JORGE Chapa at [facility]. zm Vital Signs: 05:53 BP 93 / 49; Pulse 93; Resp 24; Temp 98.5; Pulse Ox 100% on 2 lpm NC; Weight 75.3 kg; br2 Height 5 ft. 1 in. ; 06:42 BP 81 / 44; Pulse 85; Resp 25; Temp 98.5; Pulse Ox 100% ; Pain 0/10; bm8 07:00 Weight 77 kg (M); zm 07:45 BP 89 / 50; Pulse 89; Resp 14; Temp 97.1; Pulse Ox 100% on ETT vent; zm 08:00 BP 141 / 59; Pulse 96; Resp 14; Temp 97.1; Pulse Ox 100% on ETT vent; zm 08:01 BP 141 / 59; Pulse 96; Resp 14; Pulse Ox 100% ; rn 08:15 BP 123 / 57; Pulse 98; Resp 15; Pulse Ox 100% on ETT vent; zm 08:20 BP 89 / 65; Pulse 97; Resp 15; Temp 97.1; Pulse Ox 100% on ETT vent; zm 08:30 BP 136 / 61; Pulse 96; Resp 22; Pulse Ox 100% on ETT vent; zm 08:40 BP 136 / 70; Pulse 95; Resp 18; Pulse Ox 100% on ETT vent; zm 09:00 BP 151 / 66; Pulse 91; Resp 20; Pulse Ox 100% on ETT vent; zm 09:15 BP 116 / 54; Pulse 94; Resp 21; Pulse Ox 100% on ETT vent; zm 09:20 BP 89 / 47; Pulse 86; Resp 16; Temp 97.1; Pulse Ox 100% on ETT vent; zm 09:30 BP 95 / 62; Pulse 87; Resp 21; Pulse Ox 100% on ETT vent; zm 09:45 BP 124 / 68; Pulse 85; Resp 19; Pulse Ox 100% on ETT vent; zm 10:00 BP 130 / 75; Pulse 85; Resp 19; Pulse Ox 100% on ETT vent; zm 10:15 BP 145 / 67; Pulse 80; Resp 15; Pulse Ox 100% on ETT vent; zm 10:30 BP 147 / 69; Pulse 81; Resp 13; Pulse Ox 100% on ETT vent; zm 10:45 BP 96 / 47; Pulse 81; Resp 15; Pulse Ox 100% on ETT vent; zm 11:00 BP 128 / 57; Pulse 78; Resp 15; Pulse Ox 100% on ETT vent; zm 11:15 BP 130 / 59; Pulse 76; Resp 14; Temp 97.1; Pulse Ox 100% on ETT vent; zm 05:53 Body Mass Index 31.37 (77.00 kg, 154.94 cm) br2 06:42 Pain Scale: Adult bm8 06:42 provider informed of low BP. bm8 [place] Coma Score: 06:42 Eye Response: to voice(3). Motor Response: obeys commands(6). Verbal Response: bm8 confused(4). Total: 13. 07:00 Eye Response: spontaneous(4). Motor Response: obeys commands(6). Verbal Response: zm oriented(5). Total: 15. ED Course: 05:50 Patient arrived in ED. gm2 05:50 Wanda Colunga MD is Attending Physician. sp3 05:57 Triage completed. br2 05:57 Arm band placed on right wrist. br2 06:00 No provider procedures requiring assistance completed. bm8 06:00 Initial lab(s) drawn, by me, sent to lab. First set of blood cultures drawn by me. bm8 06:00 Inserted saline lock: 20 gauge in right in left antecubital area, using aseptic bm8 technique. Blood collected. Flushed with 10 mL NS. 06:00 Patient maintains SpO2 saturation greater than 95% on room air. bm8 06:15 Second set of blood cultures drawn by me, EKG done, by ED staff, reviewed by Wanda Colunga MD COVID swab sent to lab. Flu and/or RSV swab sent to lab. T\T\S collected, blood band applied to patient. 06:42 Edward Ruiz, RN is Primary Nurse. bm8 06:42 Patient has correct armband on for positive identification. Placed in gown. Bed in low bm8 position. Call light in reach. Side rails up X2. Adult w/ patient. Client placed on continuous cardiac and pulse oximetry monitoring. NIBP monitoring applied. teletypesetter monitor on. Pulse ox on. NIBP on. Door closed. Noise minimized. Warm blanket given. Pillow given. Verbal reassurance given. Head of bed elevated. 07:00 Provided Education on: Blood Transfusion. zm 07:01 Attending Physician role handed off by Wanda Colunga MD rn 07:01 Pardeep Reich MD is Attending Physician. rn 07:09 Report given to POLA WHEELER ZAINA, RN'S. bm8 07:16 XRAY Chest (1 view) In Process Unspecified. EDMS 07:32 Assisted provider with intubation using 7.0 mm ETT via oral route. ET tube secured at zm 23cm at the teeth. Set up intubation tray. Intubated by Pardeep Reich MD Placement verified by CO2 detector w/ + color change, auscultating bilateral breath sounds, CXR, Patient tolerated well. 07:45 Assisted provider with central line placement. Set up central line tray. Triple lumen zm line placed in right femoral. Line placed by Pardeep Reich MD Placement verified by blood return, Dressed with Tegaderm, Patient tolerated well. Time-out/Briefing performed prior to start of procedure? Yes. Was handwashing/sanitizing done immediately prior to procedure? Yes. Was patient positioned to in a way to prevent air embolism? Yes. Was procedure site sterilized? Yes, with chlorhexidine. Was the site allowed to dry? Yes. Was local anesthetic and/or sedation utilized? Yes. During the procedure, did the Practitioner(s) maintain a sterile field? Yes. Were unused ports clamped during insertion? Yes. Was blood aspirated from each lumen? Yes. After the procedure, did the Practitioner(s) clean the site and apply a sterile dressing? Yes. 08:15 NGT: inserted 16 Fr. other OG tube verified return of gastric contents, Placement zm verified by X-ray, to intermittent suction. Returned gastric contents. Patient tolerated well. 08:28 Chest Single View XRAY In Process Unspecified. EDMS 08:58 Chest Abd Pelvis Wo Con In Process Unspecified. EDMS 09:20 Clark cath inserted, using sterile technique, 16 Fr., by me, balloon inflated, to zm gravity drainage, returned clear yellow urine. Patient tolerated well. 09:[address] [facility]. bd 09:45 pt accepted in transfer to [facility] [id number] Newsome admin approval bd given by Chelsea Tidwell RN. 10:05 Hemoglobin Sent. zm 11:19 Primary Nurse role handed off by Edward Ruiz, RN bd 11:28 Michela Giraldo, RN is Primary Nurse. zm 11:30 One-on-one care X 270 minutes. zm 11:30 Patient transferred, IV remains in place. zm Restraints: 09:50 Non-Violent Restraint: Initial order obtained. March 08, 2025 at 09:50 Staff present ap3 on initiation: marilee PATEL, Michela RN. Indications for initiating restraints: Actions/Behavior observed: repeated attempts to remove artificial airway/mechanical respiration support, repeated attempts to remove/tamper with lines/tubes/IV med devices \T\ wound dressing, Confused/disoriented, has difficulty remembering/follow instructions, has impaired decision making, has decreased level of consciousness, unable to follow instructions, Less restrictive alternatives attempted: family at bedside, reoriented to location, decrease environmental stimuli, medicated for pain/anxiety, eliminated unnecessary lines/tubes, lines/tubes covered, medications evaluated, placed near Nurse station, Alternative interventions: Ineffective. Clinical justification for use: airway protection, line protection, patient safety, Restraint Status: Soft wrist restraint (Right) started Soft wrist restraint (Left) started Family notification/education Family notification: Family notified of restraint application. Education Performed: Education provided to patient/family/spouse/SO/legally authorized service support representative regarding the behaviors that necessitated restraint application and the behaviors that the patient shall demonstrate to be released. Circulation: Warm/dry, capillary refill WNL. Skin integrity: Intact, healthy with good turgor. Signs of injury related to restraint: No injuries noted. Range of Motion performed. Level of distress \T\ agitation: Intubated/Sedated. Hydration/Food: patient currently NPO due to intubation status Elimination/Hygiene: with urinary catheter, diaper changed. 11:15 Non-Violent Restraint: Circulation: Warm/dry, capillary refill WNL. Skin integrity: ap3 Intact, healthy with good turgor. Signs of injury related to restraint: No injuries noted. Range of Motion performed. Level of distress \T\ agitation: Intubated/Sedated. Elimination/Hygiene: with urinary catheter, Restraint status: Soft wrist restraint (Right) Continued. Soft wrist restraint (Left) Continued. 11:30 Non-Violent Restraint: Transfer of care of a patient in restraints Report given to: [facility], [facility], and [facility]. Administered Medications: 06:17 CANCELLED (error): potassium [id number] meq PO once sp3 07:08 CANCELLED (Duplicate Order): ns 0.9% 1000 ml IV at 1000 ml once; to be given as a bolus rn over 60 minutes 07:14 Drug: Pantoprazole IVP 40 mg IVP once Route: IVP; Site: left antecubital; ar8 11:42 Follow up: Response: No adverse reaction zm 07:32 Drug: Etomidate IVP 20 mg IVP once Route: IVP; Site: left antecubital; zm 07:40 Follow up: Response: No adverse reaction; RASS: Deep sedation (-4) zm 07:32 Drug: Rocuronium IVP 50 mg IVP once Route: IVP; Site: left antecubital; zm 07:40 Follow up: Response: No adverse reaction; RASS: Deep sedation (-4) zm 07:45 Drug: Norepinephrine IV 0.1 mcg/kg/min IV at calculated rate Per protocol; (Standard zm concentration 4 mg / 250 mL D5W); Recommended max rate 3 mcg/kg/min; Titrate 0.05 mcg/kg/min as often as every 5 minutes to achieve goal (see titration policy); Goal parameter MAP greater than 65 mmHg. Route: IV; Rate: calculated rate; Site: right femoral; 07:55 Follow up: Rate change 4 mcg/min zm 08:20 Follow up: Rate change 5 mcg/min zm 09:20 Follow up: Rate change 7 mcg/min zm 09:35 Follow up: Rate change 10 mcg/min ap3 10:03 Follow up: Rate change 12 mcg/min ap3 11:30 Follow up: IV Status: Infusion continued upon transfer ap3 11:35 Follow up: Rate change 10 mcg/min zm 07:50 Drug: Pantoprazole IV 8 mg/hr IV at 25 ml/hr continuous; (Standard dilution is 80 mg in zm 250 mL NS) Route: IV; Rate: 25 ml/hr; Site: right femoral; 11:43 Follow up: Response: No adverse reaction; IV Status: Infusion continued upon transfer zm 09:05 Drug: Propofol IV 5 mcg/kg/min IV at calculated rate See Administration Instructions; zm Standard concentration 1000 mg / 100 mL; Recommended max rate 50 mcg/kg/min; Titrate 5 mcg/kg/min every 5 minutes to achieve goal (see titration policy); Goal parameter RASS score 0 to -2 Route: IV; Rate: calculated rate; Site: right femoral; 09:15 Follow up: Rate change 40 bolus; verbal bedside order per provider 40 mg rapid bolus zm 09:30 Follow up: Rate change 10 mcg/kg/min zm 11:15 Follow up: Rate change 15 mcg/kg/min zm 11:42 Follow up: Response: RASS: Moderate sedation (-3); IV Status: Infusion continued upon zm transfer 09:40 Drug: Ativan IVP 1 mg IVP once Route: IVP; Site: left antecubital; zm 10:10 Follow up: Response: No adverse reaction; RASS: Light sedation (-2) zm 09:45 Drug: Furosemide IVP 40 mg IVP once; give over 2 minutes Route: IVP; Site: left zm antecubital; 11:44 Follow up: Response: No adverse reaction zm 10:00 Drug: Ketamine IVP 50 mg IVP once Route: IVP; Site: left antecubital; zm 10:15 Follow up: Response: No adverse reaction; RASS: Moderate sedation (-3) zm 10:46 Drug: Midazolam IVP or IV 3 mg IVP once Route: IVP; Site: left antecubital; ap3 11:00 Follow up: Response: No adverse reaction; RASS: Moderate sedation (-3) Medication: 06:42 VIS not applicable for this client. bm8 Intake: Outcome: 09:42 ER care complete, transfer ordered by . rn 11:30 Transferred by ground EMS [facility]. to [facility], [facility], Transfer zm form completed. X-rays sent w/ patient. 11:30 Condition: stable 11:30 Instructed on Daughter instructed on need for transfer Demonstrated understanding of zm instructions, 12:35 Patient left the ED. zm 16:50 Patient left the ED. hb Signatures: Dispatcher [employer] EDKS Emily Pepe Roman, MD MD rn Baxter, Heather, RN RN Marilee Posey RN RN ap3 Wanda Colunga MD MD sp3 Michela Giraldo RN RN zm Claudine Hendrickson 2 Edward Ruiz RN RN bm8 Sabina Templeton RN RN br2 Pola Parker RN RN ar8 Corrections: (The following items were deleted from the chart) 06:52 06:42 BP 81 / 44; Pulse 85bpm; Resp 20bpm; Pulse Ox 100%; Temp 98.5F; Pain 0/10, Adult; bm8 provider informed of low BP.; bm8 08:14 07:00 Acuity: [place] 2 hb hb 12:03 12:02 Rate change 5 mcg/min zm zm 12:15 12:12 Rate change 12 mcg/min ap3 ap3 12:17 12:16 IV Status: Infusion continued upon transfer ap3 ap3 12:18 08:20 BP 89 / 65; Pulse 97bpm; Resp 15bpm; Temp 97.1F; zm zm 12:18 09:20 BP 89 / 47; Pulse 86bpm; Resp 16bpm; Temp 97.1F; zm zm
[2025-03-08] MEDS ORDERED: KETAMINE HCL IN 0.9 % NACL 50 MG/5 ML SYRINGE IV ONE (09:49)
[2025-03-08] MEDS ORDERED: MIDAZOLAM HCL 5 ML ONE (10:39)
[2025-03-08 13:00] VITALS: O2SAT 100
[2025-03-08 13:03] VITALS: TEMP 97.1
[2025-03-08 13:24] VITALS: BP 130/59
== END 2025-03-08 16:50 | disposition short-term general hospital (02) ==
LOC: ER 05:44
PROC: 30233N1 Transfusion of Nonautologous Red Blood Cells into Peripheral Vein, Percutaneous Approach (ICD-10-PCS; principal; 2025-03-08)
DX: K92.2 Gastrointestinal hemorrhage, unspecified (principal); D64.9 Anemia, unspecified; J81.0 Acute pulmonary edema; I31.39 Other pericardial effusion (noninflammatory); R00.0 Tachycardia, unspecified; R06.02 Shortness of breath; I10 Essential (primary) hypertension; F41.9 Anxiety disorder, unspecified; I50.9 Heart failure, unspecified; K21.9 Gastro-esophageal reflux disease without esophagitis; Z11.52 Encounter for screening for COVID-19
CPT/HCPCS: 96365; 96367; 96368; 93005; 87040 ×2; 85025; 80048; 36415; 86900; 83735; 86850; 85610; 86901; 80076; 83605; 86920 ×3; 85018; 84484; 83880; 71250; 74176; 71045 ×2; 31500; 51702; 96375; 43753; 99291; 99292; 96366; 36556; 87428; 94002; 36430; J3490; J2704; J2250; J1938; J2470 ×2; P9016 ×2; J7050 ×3